=== PATIENT | female | born 1945 | race Two or more races ===

== ENCOUNTER 2020-02-25 16:26 | Inpatient (IN) | payer MEDICAID, OTHER ==
[~2020-02-25] VITALS: Ht 137.2 cm; Wt 81.0 kg
[2020-02-25 17:33] LABS: Red Cell Distribution Width 14.5 % (11.8-14.3); White Blood Cell 4.1 10^3/uL (4.4-10.8)
[2020-02-25 17:34] LABS: Hematocrit 34.5 % (36.0-46.0); Hemoglobin 12.2 g/dL (12.2-16.2); Mean Corpuscular Hemoglobin 35.9 pg (28.0-32.0); Mean Corpuscular Hgb Conc. 35.2 g/dL (32.0-36.0); Red Blood Cells 3.39 10^6/uL (4.0-5.20)
[2020-02-25 17:42] LABS: Alanine Aminotransferase 20 U/L (13-56); Albumin 3.2 g/dL (3.4-5.0); Anion Gap 4 (5-15); Aspartate Aminotransferase 18 U/L (15-37); BUN/Creatinine Ratio 16.8; Blood Urea Nitrogen 21 mg/dL (7-18); Calcium 8.4 mg/dL (8.5-10.1); Carbon Dioxide 29 mmol/L (21-32); Chloride 107 mmol/L (98-107); GFR African American 54 mL/min; GFR Non-African American 45 mL/min; Glucose 111 mg/dL (74-106); Platelet Count (auto) 4 10^3/uL (140-450); Potassium 3.8 mmol/L (3.5-5.1); Sodium 140 mmol/L (136-145)
[2020-02-25 17:44] LABS: Band Neutrophils % (manual) 0; Basophils % (manual) 0 (0.0-2.0); Blast Cells 0; Metamyelocytes % 0; Myelocytes % 0; Promyelocytes % 0; Reactive Lymphocytes 0
[2020-02-25 17:47] LABS: Alkaline Phosphatase 93 U/L (45-117); Bilirubin, Total 0.7 mg/dL (0.2-1.0); Total Protein 7.5 g/dL (6.4-8.2)
[2020-02-25 18:10] LABS: Lymphocytes % (manual) 65 (10.0-50.0); Monocytes % (manual) 7 (0-12)
[2020-02-25 18:11] LABS: Eosinophils % (manual) 1 (0-7)
[2020-02-25 19:00] LABS: Urine Bacteria FEW /hpf (None Seen); Urine Blood 1+ /uL (Negative); Urine Specific Gravity 1.007 (1.001-1.035); Urine WBC 10 /hpf (0 - 5)
[2020-02-25 19:25] LABS: INR 0.98 (0.9-1.15); Partial Thromboplastin Time 25.1 sec (23.64-32.05)
[2020-02-25 20:30] VITALS: BP 148/76
[2020-02-25 20:49] VITALS: BP 167/78
[2020-02-25] MEDS ORDERED: TEMAZEPAM 15 MG CAP PO PRN (21:45)
[2020-02-25] MEDS ORDERED: cloNIDine HCL 0.1 MG TAB PO PRN (21:45)
[2020-02-25] MEDS ORDERED: ONDANSETRON HCL 4 MG/2 ML VIAL IV PRN (21:45)
[2020-02-25] MEDS ORDERED: MECLIZINE HCL 25 MG TAB PO ONE (21:45)
[2020-02-25] MEDS ORDERED: MECLIZINE HCL 25 MG TAB PO PRN (21:45)
[2020-02-25] MEDS ORDERED: ACETAMINOPHEN 325 MG TAB PO PRN (21:45)
[2020-02-25 22:28] VITALS: BP 170/68
[2020-02-25 23:00] VITALS: BP 133/96
--- NOTE | 2020-02-25 23:00 | NUR ---
pt arrival pt A&Ox4. respirations are even and non labored on 2L nc. no s/s of pain or discomfort. pt is currently dangling at the bedside.
--- NOTE | 2020-02-26 02:50 | NUR ---
pt is resting in right lateral position. Respirations are even and nonlabored on 2Lnc. no s/s of pain or discomfort at this time. call light within reach.
[2020-02-26 05:00] VITALS: BP_SYST 114; BP_SYST 139; BP_DIAS 66; BP_DIAS 71
--- NOTE | 2020-02-26 06:45 | NUR ---
pt is resting in left lateral position, sleeping. respirations are even and nonlabored on 2Lnc. no s/s of pain or discomfort at this time. bed is in low locked position, call light within reach.
[2020-02-26 06:47] LABS: Basophils # (auto) 0 10 ^3/uL (0-0.2); Eosinophils # (auto) 0 10 ^3/uL (0-0.8); Hematocrit 31.8 % (36.0-46.0); Lymphocytes # (auto) 0.9 10 ^3/uL (0.4-5.4); Mean Corpuscular Hgb Conc. 34.4 g/dL (32.0-36.0); Monocytes # (auto) 0.2 10 ^3/uL (0-1.3); Nucleated Red Blood Cells % 0.4 %
[2020-02-26 06:49] LABS: Basophils % (auto) 0.4 % (0.0-2.0); Eosinophils % (auto) 0.5 % (0.0-7.0); Mean Corpuscular Hemoglobin 34.9 pg (28.0-32.0); Mean Corpuscular Volume 101.5 fL (80.0-100.0); Neutrophils # (auto) 1.8 10 ^3/uL (1.6-8.6); Neutrophils % (auto) 62.1 % (37.0-80.0); Red Blood Cells 3.14 10^6/uL (4.0-5.20); Red Cell Distribution Width 14.4 % (11.8-14.3); White Blood Cell 2.9 10^3/uL (4.4-10.8)
[2020-02-26 06:53] LABS: Platelet Count (auto) 8 10^3/uL (140-450)
--- NOTE | 2020-02-26 06:55 | NUR ---
critical low lab platelets of 4. hospitalist paged
[2020-02-26 07:02] LABS: BUN/Creatinine Ratio 21.6
--- NOTE | 2020-02-26 07:36 | NUR ---
Opening Note Assumed pt care from [facility] nurse. Pt is a/ox4 with no s/s of distress or SOB. Pt is currently laying upright in bed with no complaints at this time. Discussed POC with pt. Safety measures maintained with call light within reach, bed in lowest position and side rails up. Will continue to monitor for changes.
[2020-02-26] MEDS: PANTOPRAZOLE 40 MG TAB PO SCH (08:43)
[2020-02-26] MEDS: amLODIPine BESYLATE 5 MG TAB PO SCH (08:43)
--- NOTE | 2020-02-26 08:45 | NUR ---
Pt Taken to MRI Pt taken to MRI via wheelchair. Pt is a/ox4 with no s/s of distress upon transfer. Addendum: 02/26/20 at 0925 by NEIDA SHAH RN RN Pt back on unit. A/ox4 with no s/s of distress.
[2020-02-26 09:00] VITALS: BP 139/69
--- NOTE | 2020-02-26 10:27 | NUR ---
Blood Bank Called Blood bank called stating that pt's platelets were ready for pickling grader. Per Dr Meade's most recent note, we are mellissa hold off infusions right now. Notified blood bank of withholding blood product. Deandra in lab recommended that we cancel the existing order.
--- NOTE | 2020-02-26 11:02 | NUR ---
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 Number provided does not work and will not connect. Will attempt again and see if I can obtain another number/contact.
[2020-02-26 13:00] VITALS: BP 115/71
--- NOTE | 2020-02-26 14:10 | NUR ---
Spoke with Pt's Family Spoke with pt's daughter in law, Kelly at [phone]. Spoke to her regarding care and POC. 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 Per pt's daughter in law, pt recently moved up to [facility] and is scheduled to see a new High Wire Artist/Oncologist later this month, March 24. Pt's daughter in law did provide me with contact for pt's previous Oncologist/High Wire Artist, Dr Vasiliy Inman, , located in [place]. This is the only contact that the pt's daughter in law had. Per daughter in law, she would attempt to get more information and notify us. Will attempt to get additional contact information from given contact.
[2020-02-26] MEDS: methylPREDNISolone SOD SUCC 125 MG in SODIUM CHL 0.9% 100 ML IV SCH ×2 (14:14→21:47)
--- NOTE | 2020-02-26 16:10 | NUR ---
MR Ferrara Spoke with staff member at [facility] after looking up the contact provided, . Per staff member, pt did receive care there in [address] Mccauley. Fax number [phone] provided. Will [id number] to get MR from this facility.
--- NOTE | 2020-02-26 16:39 | NUR ---
Faxed MR Request Faxed MR request to [facility], . MR request fax place din chart. Will endorse to oncoming shift if report does not come back.
--- NOTE | 2020-02-26 16:46 | NUR ---
Elevated POC Glucose Pt states that she "feels her sugars are high". Pt has hx of DM. But there are no orders for glucose checks or DM management. Check pt's glucose, currently 353. Paged Dr Wilson to notify. Addendum: 02/26/20 at 1651 by NEIDA SHAH RN RN Dr Pedraza called back. Orders read back and verified.
[2020-02-26 17:00] VITALS: BP 144/87
[2020-02-26] MEDS ORDERED: DEXTROSE (50%) 50ML SYRG IV PRN (17:00)
[2020-02-26] MEDS: InsuLIN REG 1unit/0.01ml Soln (100units/ml) SC SCH (17:07)
[2020-02-26] MEDS: ACCU-CHEK COMFORT CURVE STRIP VI SCH (17:08)
[2020-02-26 20:00] VITALS: BP 144/71
[2020-02-26 22:00] VITALS: BP 124/62
[2020-02-27] MEDS: ACCU-CHEK COMFORT CURVE STRIP VI SCH ×4 (00:04→18:38)
[2020-02-27] MEDS: InsuLIN REG 1unit/0.01ml Soln (100units/ml) SC SCH ×4 (00:09→18:43)
--- NOTE | 2020-02-27 03:48 | NUR ---
PATIENT WAS AWAKE AND ALERT UNTIL MIDNIGHT. STATED SHE FEELS ANXIOUS ABOUT HER BLOOD SUGAR. WAS REASSURED. WAS INFORMED HER BLOOD SUGAR RISE WAS RELATED TO THE METHYLPREDNISOLONE SHE WAS GETTING IV. WAS HAPPY WITH THE INFORMATION AND SOON SLEPT.
[2020-02-27 05:00] VITALS: BP 116/64
[2020-02-27] MEDS: methylPREDNISolone SOD SUCC 125 MG in SODIUM CHL 0.9% 100 ML IV SCH ×2 (05:23→14:51)
[2020-02-27 09:00] VITALS: BP 141/75
[2020-02-27] MEDS: amLODIPine BESYLATE 5 MG TAB PO SCH (10:54)
[2020-02-27] MEDS: PANTOPRAZOLE 40 MG TAB PO SCH (10:54)
[2020-02-27 11:48] LABS: Basophils # (auto) 0.1 10 ^3/uL (0-0.2); Eosinophils # (auto) 0 10 ^3/uL (0-0.8); Hemoglobin 11.8 g/dL (12.2-16.2); White Blood Cell 7.3 10^3/uL (4.4-10.8)
[2020-02-27 11:50] LABS: Basophils % (auto) 1.2 % (0.0-2.0); Hematocrit 34.4 % (36.0-46.0); Lymphocytes # (auto) 1.3 10 ^3/uL (0.4-5.4); Lymphocytes % (auto) 17.3 % (10.0-50.0); Mean Corpuscular Hgb Conc. 34.2 g/dL (32.0-36.0); Mean Corpuscular Volume 102.1 fL (80.0-100.0); Monocytes # (auto) 0.1 10 ^3/uL (0-1.3); Monocytes % (auto) 1.7 % (0.0-12.0); Neutrophils # (auto) 5.8 10 ^3/uL (1.6-8.6); Neutrophils % (auto) 79.8 % (37.0-80.0); Red Blood Cells 3.36 10^6/uL (4.0-5.20); Red Cell Distribution Width 14.5 % (11.8-14.3)
[2020-02-27 11:55] LABS: Platelet Count (auto) 6 10^3/uL (140-450)
[2020-02-27 12:09] LABS: Albumin 3.3 g/dL (3.4-5.0); Calcium 8.7 mg/dL (8.5-10.1); Potassium 4.1 mmol/L (3.5-5.1)
[2020-02-27 12:14] LABS: Total Protein 7.7 g/dL (6.4-8.2)
[2020-02-27 12:54] VITALS: BP 124/61
--- NOTE | 2020-02-27 13:55 | NUR ---
Regarding medications Spoke to patient's daughter Radha and med rec verified for Cyclosporine and Promacta. Will update med rec. MD Meade notified and orders for continuing meds received and spoke to pharmacist but she states we dont carry Promacta only cyclosporine. Will medicate as ordered upon receiving med.
[2020-02-27] MEDS ORDERED: CYCL25CA7 PO (15:19)
[2020-02-27] MEDS ORDERED: ELTR12.5 PO (15:19)
[2020-02-27 17:00] VITALS: BP 132/69
--- NOTE | 2020-02-27 19:00 | NUR ---
Patient care endorsed endorsed care of patient to rachael Bhatia. Patient sitting up in bed in no acute distress or sob noted. Call light within reach.
[2020-02-27 21:36] VITALS: BP 145/75
[2020-02-27] MEDS: DexAMETHasone INJECTION 10 MG in D5W 5% 50 ML IV SCH (22:46)
[2020-02-27] MEDS: INSULIN LANTUS (GLARGINE) 1 /0.01ml (100units/ml) SC SCH (22:48)
[2020-02-28] MEDS: InsuLIN REG 1unit/0.01ml Soln (100units/ml) SC SCH ×4 (00:51→18:23)
[2020-02-28 05:04] VITALS: BP 122/74
[2020-02-28] MEDS: ACCU-CHEK COMFORT CURVE STRIP VI SCH ×4 (05:36→18:14)
[2020-02-28] MEDS: DexAMETHasone INJECTION 10 MG in D5W 5% 50 ML IV SCH ×4 (05:45→21:53)
[2020-02-28 09:00] VITALS: BP 132/70
[2020-02-28] MEDS: amLODIPine BESYLATE 5 MG TAB PO SCH (09:58)
[2020-02-28] MEDS: PROMACTA 50 MG PO SCH (09:58)
[2020-02-28] MEDS: PANTOPRAZOLE 40 MG TAB PO SCH (09:58)
[2020-02-28] MEDS ORDERED: PROMACTA 25 MG PO SCH (10:00)
[2020-02-28] MEDS: INSULIN LANTUS (GLARGINE) 1 /0.01ml (100units/ml) SC SCH ×2 (10:21→22:02)
[2020-02-28 13:00] VITALS: BP 128/68
--- NOTE | 2020-02-28 19:28 | NUR ---
RECEIVED PATIENT FROM DAY SHIFT RN. PATIENT RESTING IN BED. NO S/S OF DISTRESS NOTED. DENIED PAIN FOR NOW. POC INSTRUCTED AND ENCOURAGED PATIENT TO CALL FOR MEDICAL CLAIMS PROCESSOR IF NEEDED. BED IN LOWEST POSITION WITH SIDE RAILS UP X 2. CALL SIEGEL WITHIN REACH. ALARM ON. CONTINUE TO MONITOR FOR CHANGES Q1H AND PRN.
[2020-02-28 21:00] VITALS: BP 139/74
[2020-02-28] MEDS: ATORVASTATIN 20 MG TAB PO SCH (21:53)
--- NOTE | 2020-02-28 22:05 | NUR ---
ACCU-CHECK. BS 339. LANTUS GIVEN ORDERED. CONTINUE TO MONITOR.
[2020-02-29] MEDS: InsuLIN REG 1unit/0.01ml Soln (100units/ml) SC SCH ×5 (00:05→23:51)
[2020-02-29] MEDS: ACCU-CHEK COMFORT CURVE STRIP VI SCH ×5 (00:05→23:50)
--- NOTE | 2020-02-29 00:14 | NUR ---
ACCU-CHECK. BS 306. INSULIN GIVEN ORDERED. CONTINUE TO MONITOR.
--- NOTE | 2020-02-29 03:07 | NUR ---
PATIENT SLEEPING NO S/S OF DISTRESS NOTED. CONTINUE TO MONITOR.
[2020-02-29 05:04] VITALS: BP 117/69
[2020-02-29] MEDS: DexAMETHasone INJECTION 10 MG in D5W 5% 50 ML IV SCH ×4 (05:46→22:30)
--- NOTE | 2020-02-29 06:07 | NUR ---
ACCU-CHECK. BS 278. INSULIN GIVEN ORDERED. CONTINUE TO MONITOR.
[2020-02-29 07:13] LABS: Basophils # (auto) 0.1 10 ^3/uL (0-0.2); Eosinophils # (auto) 0 10 ^3/uL (0-0.8); Hemoglobin 11.6 g/dL (12.2-16.2); Lymphocytes # (auto) 1.3 10 ^3/uL (0.4-5.4); Mean Corpuscular Hemoglobin 34.4 pg (28.0-32.0); Neutrophils # (auto) 4.8 10 ^3/uL (1.6-8.6); Nucleated Red Blood Cells % 0.2 %; Red Blood Cells 3.37 10^6/uL (4.0-5.20); White Blood Cell 6.3 10^3/uL (4.4-10.8)
[2020-02-29 07:16] LABS: Basophils % (auto) 1.4 % (0.0-2.0); Hematocrit 34.2 % (36.0-46.0); Lymphocytes % (auto) 20.1 % (10.0-50.0); Mean Corpuscular Volume 101.4 fL (80.0-100.0); Monocytes # (auto) 0.1 10 ^3/uL (0-1.3); Monocytes % (auto) 2.2 % (0.0-12.0); Neutrophils % (auto) 76.3 % (37.0-80.0); Red Cell Distribution Width 14.9 % (11.8-14.3)
[2020-02-29 07:36] LABS: INR 1.02 (0.9-1.15); Partial Thromboplastin Time 23.1 sec (23.64-32.05)
[2020-02-29 07:41] LABS: Platelet Count (auto) 4 10^3/uL (140-450)
[2020-02-29 08:02] LABS: Potassium 3.7 mmol/L (3.5-5.1)
[2020-02-29 08:11] LABS: Albumin 3.2 g/dL (3.4-5.0); BUN/Creatinine Ratio 25.2; Bilirubin, Total 0.9 mg/dL (0.2-1.0); Calcium 8.9 mg/dL (8.5-10.1); Magnesium 2.2 mg/dL (1.6-2.6)
[2020-02-29 09:00] VITALS: BP 127/74
--- NOTE | 2020-02-29 09:20 | NUR ---
Hospitalist paged second page to doctor Myles to notify of critical labs. Awaiting call back at this time. Patient denies any bleeding at this time. Fall precs in place.
[2020-02-29 09:52] LABS: % Iron Saturation 51.6 % (15-50)
[2020-02-29] MEDS: PROMACTA 50 MG PO SCH (10:00)
[2020-02-29] MEDS: amLODIPine BESYLATE 5 MG TAB PO SCH (10:09)
[2020-02-29] MEDS: PANTOPRAZOLE 40 MG TAB PO SCH (10:09)
[2020-02-29] MEDS: INSULIN LANTUS (GLARGINE) 1 /0.01ml (100units/ml) SC SCH ×2 (10:15→22:29)
--- NOTE | 2020-02-29 11:30 | NUR ---
WARE CARRIER AT BEDSIDE DR Meade at bedside, aware of patient's status including critical labs. Inpatient pharmacy is unable to obtain Promacta and patient's family is unable to obtain med or prescription from [facility] in [place], MD Meade aware and will order another medication. New orders received for IVIG today. Will medicate once medication is available per pharmacy. Patient verbalized understanding. Will cont care
[2020-02-29 13:00] VITALS: BP 118/69
[2020-02-29] MEDS: diphenhdrAMINE 50mg/ml (500mg/10ml VIAL) IV SCH (13:47)
[2020-02-29] MEDS: ACETAMINOPHEN 325 MG TAB PO SCH (13:59)
[2020-02-29] MEDS: IV IMMUNE GLOBULIN(IVIG) 10% 20G/200ML IV SCH (14:27)
[2020-02-29 17:00] VITALS: BP 100/63
--- NOTE | 2020-02-29 17:30 | NUR ---
IVIG#2 BOTTLE RUNNING AT THIS TIME. PATIENT TOLERATING WELL NO S/S OF ALLERGIC REACTION. PATIENT INSTRUCTED TO CALL PRIMARY RN AND REPORT ANY ISSUES. CONT TO MONITOR
--- NOTE | 2020-02-29 19:15 | NUR ---
PATIENT CARE ENDORSED ENDORSED CARE TO SARITA GREENE. PATIENT LAYING COMFORTABLY IN BED NO ACUTE DISTRESS OR SOB NOTED. PATIENT DENIES ANY PAIN. FALL PRECS IN PLACE PER PROTOCOL. CALL LIGHT WITHIN REACH. IVIG CURRENTLY INFUSING ORDERED. PATIENT TOLERATING WELL. PATIENT DENIES ANY BLEEDING.
--- NOTE | 2020-02-29 19:40 | NUR ---
Opening Shift Note Report received from day shift RN. Assumed care of patient, awake and A&O x4. No S/S of distress/SOB noted and denies pain at this time. BED LOCKED AND LEFT IN THE LOWEST POSITION WITH SIDE RAILS UP X 2. Instructed on POC and to call for assist PRN, will continue to monitor for changes Q1hr and PRN.
[2020-02-29 22:00] VITALS: BP 141/74
[2020-02-29] MEDS: ATORVASTATIN 20 MG TAB PO SCH (22:17)
[2020-03-01 05:00] VITALS: BP 145/70
[2020-03-01 05:00] LABS: Red Blood Cells 3.28 10^6/uL (4.0-5.20)
[2020-03-01 05:03] LABS: Hemoglobin 11.4 g/dL (12.2-16.2); Mean Corpuscular Hemoglobin 34.8 pg (28.0-32.0); Mean Corpuscular Hgb Conc. 34.7 g/dL (32.0-36.0); Mean Corpuscular Volume 100.4 fL (80.0-100.0); Red Cell Distribution Width 14.4 % (11.8-14.3); White Blood Cell 4.6 10^3/uL (4.4-10.8)
[2020-03-01 05:26] LABS: Platelet Count (auto) 6 10^3/uL (140-450)
[2020-03-01 05:27] LABS: Band Neutrophils % (manual) 0; Basophils % (manual) 0 (0.0-2.0); Blast Cells 0; Eosinophils % (manual) 0 (0-7); Metamyelocytes % 0; Myelocytes % 0; Promyelocytes % 0; Reactive Lymphocytes 0
[2020-03-01 06:02] LABS: Lymphocytes % (manual) 26 (10.0-50.0); Monocytes % (manual) 4 (0-12)
[2020-03-01] MEDS: ACCU-CHEK COMFORT CURVE STRIP VI SCH ×3 (06:13→17:50)
[2020-03-01] MEDS: DexAMETHasone INJECTION 10 MG in D5W 5% 50 ML IV SCH ×4 (06:13→22:21)
[2020-03-01] MEDS: InsuLIN REG 1unit/0.01ml Soln (100units/ml) SC SCH ×3 (06:27→18:12)
--- NOTE | 2020-03-01 07:30 | NUR ---
OPENING SHIFT NOTE Assumed care of patient from shift supervisor rn RN. Patient is alert and oriented x4, no signs of distress noted. Patient was updated on the plan of care and verbalized understanding. Bed is locked, in the lowest position side rails up x 2 and call light is in reach. Patient was encouraged to call for assistance as needed.
--- NOTE | 2020-03-01 07:45 | NUR ---
ENDORSED CARE TO DAY SHIFT RN, PATIENT RESTING IN BED, NO S/S OF DISTRESS OR SOB.
[2020-03-01 09:00] VITALS: BP 135/72
[2020-03-01] MEDS ORDERED: IV IMMUNE GLOBULIN(IVIG) 10% 20G/200ML IV SCH (10:00)
[2020-03-01] MEDS: PROMACTA 50 MG PO SCH (10:00)
[2020-03-01] MEDS: INSULIN LANTUS (GLARGINE) 1 /0.01ml (100units/ml) SC SCH ×2 (10:19→22:21)
[2020-03-01] MEDS: PANTOPRAZOLE 40 MG TAB PO SCH (10:20)
[2020-03-01] MEDS: amLODIPine BESYLATE 5 MG TAB PO SCH (10:20)
--- NOTE | 2020-03-01 12:48 | NUR ---
Nutrition Assessment Notes Please refer to link for full assessment notes. Est energy needs: [id number] kcals (23-25 kcal/kgBW) Est protein needs: 39-42 gms/day (1.0-1.1 gm/kgBW) Will continue to monitor and reassess prn. Addendum: 03/01/20 at [address] Amended: Links added.
[2020-03-01 13:00] VITALS: BP 138/75
[2020-03-01] MEDS: diphenhdrAMINE 50mg/ml (500mg/10ml VIAL) IV SCH (13:44)
[2020-03-01] MEDS: ACETAMINOPHEN 325 MG TAB PO SCH (13:45)
[2020-03-01] MEDS: IV IMMUNE GLOBULIN(IVIG) 10% 20G/200ML IV SCH (14:20)
[2020-03-01 16:48] VITALS: BP 142/74
--- NOTE | 2020-03-01 19:15 | NUR ---
CLOSING SHIFT NOTES Care endorsed to material handler 2nd shift RN
--- NOTE | 2020-03-01 19:45 | NUR ---
Opening Shift Note Assumed care of patient, awake and alert. No S/S of distress/SOB or pain. Tamazight speaker. Instructed on POC and to call for assist PRN, will continue to monitor for changes Q1hr and PRN.
[2020-03-01 20:00] VITALS: BP 137/65
--- NOTE | 2020-03-01 20:10 | NUR ---
RH IV insertion IV access obtained, via clean sterile technique by inserting 20 gauge catheter at after 1 attempt(s). IV secured properly. No trauma to site. Patient tolerated well.
--- NOTE | 2020-03-01 20:10 | NUR ---
RFA IV removal IV DC'd with clean sterile technique, catheter fully intact. Pressure dressing applied to site. Patient tolerated well.
[2020-03-01 22:00] VITALS: BP 137/65
[2020-03-01] MEDS: ATORVASTATIN 20 MG TAB PO SCH (22:21)
[2020-03-02] MEDS: ACCU-CHEK COMFORT CURVE STRIP VI SCH ×4 (00:30→17:52)
[2020-03-02] MEDS: InsuLIN REG 1unit/0.01ml Soln (100units/ml) SC SCH ×4 (00:30→18:38)
[2020-03-02 05:00] VITALS: BP 144/71
[2020-03-02] MEDS: DexAMETHasone INJECTION 10 MG in D5W 5% 50 ML IV SCH ×3 (05:45→17:52)
--- NOTE | 2020-03-02 07:33 | NUR ---
Opening Shift Note Assumed care of patient. Patient is awake, alert, and oriented X 4, resting in bed. No S/S of respiratory distress, respirations are regular and non-labored. Patient reports no pain, N/V. Bed in lower position, brakes are locked, call light within reach. IV is patent. Patient is instructed on POC and to call for assistance as needed. Will continue to monitor for changes Q1hr and PRN.
[2020-03-02 07:46] LABS: Hemoglobin 11.2 g/dL (12.2-16.2); Red Cell Distribution Width 14.4 % (11.8-14.3); White Blood Cell 4.2 10^3/uL (4.4-10.8)
[2020-03-02 07:52] LABS: Hematocrit 32.7 % (36.0-46.0); Mean Corpuscular Hemoglobin 34.7 pg (28.0-32.0); Mean Corpuscular Hgb Conc. 34.4 g/dL (32.0-36.0); Mean Corpuscular Volume 100.9 fL (80.0-100.0); Red Blood Cells 3.24 10^6/uL (4.0-5.20)
[2020-03-02 08:00] VITALS: BP 139/78
[2020-03-02 08:03] LABS: Platelet Count (auto) 6 10^3/uL (140-450)
[2020-03-02 08:06] LABS: Band Neutrophils % (manual) 0; Basophils % (manual) 0 (0.0-2.0); Blast Cells 0; Calcium 8.1 mg/dL (8.5-10.1); Eosinophils % (manual) 0 (0-7); Metamyelocytes % 0; Myelocytes % 0; Potassium 3.5 mmol/L (3.5-5.1); Promyelocytes % 0; Reactive Lymphocytes 0
[2020-03-02 08:08] LABS: BUN/Creatinine Ratio 33.3
[2020-03-02 08:30] LABS: Lymphocytes % (manual) 27 (10.0-50.0); Monocytes % (manual) 5 (0-12)
[2020-03-02 09:00] VITALS: BP 139/78
--- NOTE | 2020-03-02 09:32 | NUR ---
Follow up regarding medical records This rn spoke to Vilma at [facility] [place] [facility] regarding medical records, she states she will gather records and fax them to [employer] at [phone]. Awaiting records at this time.
[2020-03-02] MEDS: PROMACTA 50 MG PO SCH (10:00)
[2020-03-02 10:19] LABS: Folate (Folic Acid) 16.33 ng/mL (5.38-24)
[2020-03-02] MEDS: PANTOPRAZOLE 40 MG TAB PO SCH (10:23)
[2020-03-02] MEDS: amLODIPine BESYLATE 5 MG TAB PO SCH (10:24)
[2020-03-02] MEDS: INSULIN LANTUS (GLARGINE) 1 /0.01ml (100units/ml) SC SCH ×2 (10:27→22:29)
[2020-03-02 13:12] VITALS: BP 143/72
--- NOTE | 2020-03-02 13:33 | NUR ---
Regarding IVIG Per Pharmacist Eunice, hospital does not have IVIG currently. She states she will order from another hospital and notify primary nursing once med is available for administration. Instructed to hold benadryl and tylenol at this time until medication is available. Cont care
[2020-03-02] MEDS: diphenhdrAMINE 50mg/ml (500mg/10ml VIAL) IV SCH (14:49)
[2020-03-02] MEDS: ACETAMINOPHEN 325 MG TAB PO SCH (14:50)
[2020-03-02] MEDS: IV IMMUNE GLOBULIN(IVIG) 10% 20G/200ML IV SCH (15:53)
--- NOTE | 2020-03-02 15:53 | NUR ---
IVIG obtained per pharmacy and started as ordered Bottle number 1 started at this time out of 6 bottles. 10mg per bottle for a total of 6 bottles.
[2020-03-02 16:51] VITALS: BP 132/63
--- NOTE | 2020-03-02 17:53 | NUR ---
IVIG Second bottle IVIG infusing at this time. Patient tolerating well. Cont care
--- NOTE | 2020-03-02 19:10 | NUR ---
Patient care endorsed endorsed care to Rere cano. Patient resting comfortably in bed no acute distress or sob currently infusing bottle #2 out of 6 bottles. Rere informed IVIG is in the fridge. Call light within reach.
--- NOTE | 2020-03-02 19:45 | NUR ---
Opening Shift Note Assumed care of patient, awake and alert. No S/S of distress/SOB or pain. Instructed on POC and to call for assist PRN, will continue to monitor for changes Q1hr and PRN.
--- NOTE | 2020-03-02 19:50 | NUR ---
IVIG Third bottle IVIG infusing at this time. Patient tolerating well. Cont care
--- NOTE | 2020-03-02 21:10 | NUR ---
IVIG Fourth bottle IVIG infusing at this time. Patient tolerating well. Cont care
[2020-03-02] MEDS: ATORVASTATIN 20 MG TAB PO SCH (22:28)
--- NOTE | 2020-03-02 22:30 | NUR ---
IVIG Fifth bottle IVIG infusing at this time. Patient tolerating well. Cont care
[2020-03-02 23:09] VITALS: BP 118/76
--- NOTE | 2020-03-02 23:40 | NUR ---
IVIG 6th bottle IVIG infusing at this time. Patient tolerating well. Cont care
[2020-03-03] MEDS: InsuLIN REG 1unit/0.01ml Soln (100units/ml) SC SCH ×5 (00:12→23:51)
[2020-03-03] MEDS: ACCU-CHEK COMFORT CURVE STRIP VI SCH ×5 (00:12→23:52)
[2020-03-03 05:41] VITALS: BP 129/70
--- NOTE | 2020-03-03 07:24 | NUR ---
CLOSING SHIFT NOTES Care endorsed to back padder RN
--- NOTE | 2020-03-03 07:35 | NUR ---
Opening Shift Note Assumed care of patient, pt is laying in bed alert and oriented x 4. No S/S of distress or SOB, patient denies any pain at the moment. Instructed on POC and to call for assistance as needed, call light within reach. Safety measures in place, bed set to lowest locked position x2 rails up. Will continue to monitor for changes Q1hr and PRN.
[2020-03-03 09:12] VITALS: BP 128/59
[2020-03-03] MEDS: PANTOPRAZOLE 40 MG TAB PO SCH (09:32)
[2020-03-03] MEDS: amLODIPine BESYLATE 5 MG TAB PO SCH (09:33)
[2020-03-03] MEDS: INSULIN LANTUS (GLARGINE) 1 /0.01ml (100units/ml) SC SCH ×2 (09:34→21:50)
[2020-03-03] MEDS: PROMACTA 50 MG PO SCH (10:00)
[2020-03-03 13:00] VITALS: BP 130/68
--- NOTE | 2020-03-03 14:11 | NUR ---
assessment Patient is a 74 year old female who is alert and oriented. Prior to admission patient lived home with family and functioned independently. Patient informed me she is able to care for her own ADLs. Per patient she will return home to her prior living arrangements post discharge and family will transport her home. PAtient has a fww for home use. Patient has no post discharge needs identified. I informed patient she has a right to speak to a social contact worker regarding all care. I informed patient she has a right to participate in any and all discharge planning. Patient does not have a POA and advanced directive. I have offered patient information on POA and advanced directives. I informed the patient the advantages and benefits of having an Advanced Directive. Patient verbalized understanding and agreed to discharge plan. Addendum: 03/03/20 at 1413 by Michelle JAIN Amended: Links added.
--- NOTE | 2020-03-03 14:15 | NUR ---
Dr. Meade notified of the CBC result, no further order.
[2020-03-03 14:21] LABS: Hematocrit 33.6 % (36.0-46.0); Hemoglobin 11.4 g/dL (12.2-16.2); Mean Corpuscular Hemoglobin 34.5 pg (28.0-32.0); Mean Corpuscular Volume 101.4 fL (80.0-100.0); Red Blood Cells 3.31 10^6/uL (4.0-5.20); Red Cell Distribution Width 14.6 % (11.8-14.3); White Blood Cell 5.3 10^3/uL (4.4-10.8)
[2020-03-03 14:41] LABS: Band Neutrophils % (manual) 0; Basophils % (manual) 0 (0.0-2.0); Blast Cells 0; Eosinophils % (manual) 0 (0-7); Metamyelocytes % 0; Myelocytes % 0; Promyelocytes % 0; Reactive Lymphocytes 0
[2020-03-03 14:47] LABS: Lymphocytes % (manual) 32 (10.0-50.0); Monocytes % (manual) 4 (0-12)
--- NOTE | 2020-03-03 16:32 | NUR ---
pt resting on bed at this time, will continue to monitor.
[2020-03-03 17:00] VITALS: BP 135/71
--- NOTE | 2020-03-03 19:30 | NUR ---
Opening Shift Note Assumed care of patient, awake and alert x4. No S/S of distress/SOB or pain. Call light is within reach, fall precautions are in place. Instructed on POC and to call for assist PRN. All questions and concerns answered, will continue to monitor for changes Q1hr and PRN.
[2020-03-03] MEDS: ATORVASTATIN 20 MG TAB PO SCH (21:50)
[2020-03-03 21:53] VITALS: BP 112/63
[2020-03-04 05:07] VITALS: BP 103/55
[2020-03-04] MEDS: ACCU-CHEK COMFORT CURVE STRIP VI SCH (06:41)
[2020-03-04] MEDS: InsuLIN REG 1unit/0.01ml Soln (100units/ml) SC SCH ×4 (06:42→23:36)
[2020-03-04 06:53] LABS: Hemoglobin 11.6 g/dL (12.2-16.2)
[2020-03-04 06:57] LABS: Hematocrit 33.2 % (36.0-46.0); Mean Corpuscular Hemoglobin 35.3 pg (28.0-32.0); Mean Corpuscular Volume 100.7 fL (80.0-100.0); Red Cell Distribution Width 14.2 % (11.8-14.3); White Blood Cell 4.7 10^3/uL (4.4-10.8)
[2020-03-04 07:38] LABS: Platelet Count (auto) 5 10^3/uL (140-450)
[2020-03-04 07:39] LABS: Band Neutrophils % (manual) 0; Basophils % (manual) 0 (0.0-2.0); Blast Cells 0; Eosinophils % (manual) 0 (0-7); Metamyelocytes % 0; Myelocytes % 0; Promyelocytes % 0; Reactive Lymphocytes 0
--- NOTE | 2020-03-04 07:55 | NUR ---
Patient awake, oriented x4, no acute distress noted.
[2020-03-04 08:18] LABS: Lymphocytes % (manual) 63 (10.0-50.0)
[2020-03-04 08:19] LABS: Monocytes % (manual) 16 (0-12)
--- NOTE | 2020-03-04 08:31 | NUR ---
Platelet = 5*L. Dominique Wilson.
--- NOTE | 2020-03-04 08:35 | NUR ---
Dr. Wilson called back. made aware Platelet Count = 5*L. ordered to inform Dr. Meade for Hematology follow up.
--- NOTE | 2020-03-04 08:36 | NUR ---
Dr. Meade came over. made aware of the patient's Platelet = 5*L.
--- NOTE | 2020-03-04 08:50 | NUR ---
Dr. Meade at bedside for Hematology follow up. ordered Rituxan IV, the Oncology Nurse to come over to administer the medication. FRANKLIN Powell translated for the patient in Nepali. Patient asked when is she going home. Dr. Meade explained to patient that her platelet has to improve.
[2020-03-04 09:00] VITALS: BP 100/58
[2020-03-04] MEDS: PROMACTA 50 MG PO SCH (09:13)
[2020-03-04] MEDS ORDERED: ACETAMINOPHEN 325 MG TAB PO ONE (09:15)
[2020-03-04] MEDS ORDERED: DexAMETHasone SOD PHOS 10MG/1ML VIAL INJ IV ONE (09:15)
--- NOTE | 2020-03-04 09:30 | NUR ---
Transferred patient via wheelchair from Room 221A to Room 204. Patient awake, oriented x4. No acute distress noted.
--- NOTE | 2020-03-04 09:35 | NUR ---
Dr. Meade to discontinue the order for IV Rituxan, he will keep the order for Promacta. made aware patient has been transferred to Room 204.
--- NOTE | 2020-03-04 09:35 | NUR ---
Dr. Meade to send the Promacta to Pharmacy.
--- NOTE | 2020-03-04 09:40 | NUR ---
Patient asked if her family can bring her almond shake from home. Informed Dr. Meade. said patient can have it. Explained to patient her family can bring her almond shake as long as it does not contain medications. FRANKLIN Powell translated in Gambian.
[2020-03-04] MEDS: PANTOPRAZOLE 40 MG TAB PO SCH (09:54)
[2020-03-04] MEDS: amLODIPine BESYLATE 5 MG TAB PO SCH (09:55)
[2020-03-04] MEDS: INSULIN LANTUS (GLARGINE) 1 /0.01ml (100units/ml) SC SCH ×2 (10:00→21:56)
[2020-03-04] MEDS ORDERED: [UNRECOGNIZED DRUG - OTHER] PO ONE (11:00)
--- NOTE | 2020-03-04 11:58 | NUR ---
Dr. Wilson came over. made aware Dr. Meade has seen the patient for follow up Hematology Consult.
[2020-03-04 13:00] VITALS: BP 124/73
[2020-03-04 17:00] VITALS: BP 105/67
--- NOTE | 2020-03-04 19:20 | NUR ---
Received report from the Day Shift RNMaira Han. Pt. in bed quiet and resting. Initial assessment done.
--- NOTE | 2020-03-04 21:40 | NUR ---
Called/Notified Pharmacy about Cyclosporin NOT available @ the [place] [place]. Pharmacy will follow-up.
[2020-03-04] MEDS: ATORVASTATIN 20 MG TAB PO SCH (21:47)
--- NOTE | 2020-03-04 21:47 | NUR ---
Med. as scheduled given @ this time. Pt. made aware of the meds. as scheduled. Pt. verbalized partial understanding. Will reenforce health teaching about her medications during hospitalization.
[2020-03-04 22:00] VITALS: BP 113/60
--- NOTE | 2020-03-04 22:15 | NUR ---
Pharmacy Personnel Isabelle called and notified RAMONA Ratliff that the Cyclosporin -Neoral Modified Capsules 3 caps doses required for the pt. are not available @ this time. Medication will be available tomorrow.
--- NOTE | 2020-03-04 23:29 | NUR ---
Accucheck taken with result of BS = 173 , pt. will be given s/s of Regular Human insulin -see Emar.
--- NOTE | 2020-03-04 23:36 | NUR ---
Pt. given 4 units of Regular Human Insulin SQ @ the [facility] for BS = 173 , see Emar. Pt. made are of the blood sugar and Regular Human Insulin s/s coverage. Pt. verbalized understanding.
--- NOTE | 2020-03-05 00:30 | NUR ---
Pt. is sleeping undisturbed. Keep pt. room environment free from unnecessary noise and lights off. Call-light within pt.'s reach.
--- NOTE | 2020-03-05 04:00 | NUR ---
Pt. sleeping well, easily arousable by name. Keep pt. safe and core finisher bed. Call-light within reach @ the bedside.
[2020-03-05 05:00] VITALS: BP 107/59
[2020-03-05 05:43] LABS: Basophils # (auto) 0 10 ^3/uL (0-0.2); Basophils % (auto) 0.2 % (0.0-2.0); Eosinophils # (auto) 0 10 ^3/uL (0-0.8); Hematocrit 32.8 % (36.0-46.0); Hemoglobin 11.5 g/dL (12.2-16.2); Mean Corpuscular Volume 100.7 fL (80.0-100.0); Neutrophils # (auto) 1.9 10 ^3/uL (1.6-8.6); Nucleated Red Blood Cells % 0.4 %; Red Blood Cells 3.26 10^6/uL (4.0-5.20); Red Cell Distribution Width 14.2 % (11.8-14.3); White Blood Cell 5.4 10^3/uL (4.4-10.8)
[2020-03-05 05:44] LABS: Eosinophils % (auto) 0.3 % (0.0-7.0); Lymphocytes # (auto) 2.8 10 ^3/uL (0.4-5.4); Mean Corpuscular Hemoglobin 35.2 pg (28.0-32.0); Mean Corpuscular Hgb Conc. 34.9 g/dL (32.0-36.0); Monocytes # (auto) 0.6 10 ^3/uL (0-1.3); Monocytes % (auto) 11.9 % (0.0-12.0); Neutrophils % (auto) 35.6 % (37.0-80.0)
[2020-03-05 05:48] LABS: Platelet Count (auto) 6 10^3/uL (140-450)
--- NOTE | 2020-03-05 05:48 | NUR ---
Received call from Lab. Personnel Lawson that platelet result is = 6. Will Call and notify GILBERTO Bran.
[2020-03-05 06:00] LABS: BUN/Creatinine Ratio 42.7; Calcium 7.7 mg/dL (8.5-10.1)
--- NOTE | 2020-03-05 06:28 | NUR ---
GILBERTO Bran made aware of the Platelet result today of 6 from 5 yesterday. GILBERTO Bran aware. No further order given.
[2020-03-05] MEDS: InsuLIN REG 1unit/0.01ml Soln (100units/ml) SC SCH ×2 (06:58→11:38)
--- NOTE | 2020-03-05 07:30 | NUR ---
Opening Shift Note Assumed care of patient, patient is sitting in bed A&Ox4. No S/S of distress, dizziness, or SOB. Denies any pain at the moment. Instructed on POC and to call for assistance as needed, call light within reach. Safety measures in place, gurney set to lowest locked position x 2 rails up . Will continue to monitor for changes Q1hr and PRN.
[2020-03-05 09:00] VITALS: BP 111/57
[2020-03-05] MEDS: PANTOPRAZOLE 40 MG TAB PO SCH (09:59)
[2020-03-05] MEDS: INSULIN LANTUS (GLARGINE) 1 /0.01ml (100units/ml) SC SCH (10:00)
[2020-03-05] MEDS ORDERED: PROMACTA 50 MG PO SCH (10:00)
[2020-03-05] MEDS: amLODIPine BESYLATE 5 MG TAB PO SCH (10:01)
--- NOTE | 2020-03-05 11:14 | NUR ---
Received Cyclosporine from pharmacy.
--- NOTE | 2020-03-05 12:15 | NUR ---
DR. GALDAMEZ AT BEDSIDE PER MD GALDAMEZ, PATIENT CAN IS CLEARED FOR DISCHARGE. INFORMED MD GALLAGHER AND SHE WILL PUT IN DISCHARGE ORDERS. PER MD GALDAMEZ HE WANTS THE PATIENT'S DAUGHTER TO MODEL AND MOLD MAKER PLASTER PRESCRIPTIONS ON SUNDAY AT HIS OFFICE. PATIENT VERBALIZED UNDERSTANDING.
[2020-03-05 13:00] VITALS: BP 117/49
--- NOTE | 2020-03-05 13:54 | NUR ---
SPOKE WITH DR. AILEEN RICHARDS SAW PATIENT ALREADY AND NO PLAN WAS GIVEN. SO PATIENT CAN STILL BE DISCHARGED.
[2020-03-05 13:56] VITALS: BP 117/79
--- NOTE | 2020-03-05 15:51 | NUR ---
Discharge instructions given as ordered. Encourage to follow up with PMD as instructed. All questions and concerns addressed. Patient verbalized understanding. Medication reconciliation form completed and copy given to patient. Home medications held in Pharmacy returned to patient. IV removed with catheter intact, pressure dressing applied. Patient taken to vehicle via wheelchair with all personal belongings, accompanied by staff and family member. No distress noted at time of departure.
[2020-03-06 16:15] LABS: Platelet Count (auto) 7 10^3/uL (140-450)
== END 2020-03-05 15:50 | disposition home or self-care (01) | DRG 661 ==
LOC: ER 16:26 → OVERFLOW 16:27 → CENTRAL 22:41
PROVIDERS: ADMIT Nurse Practitioner; ATTEND Internal Medicine Nephrology
PROC: 30233R1 Transfusion of Nonautologous Platelets into Peripheral Vein, Percutaneous Approach (ICD-10-PCS; principal; 2020-02-25)
DX: D69.3 Immune thrombocytopenic purpura (principal); D61.818 Other pancytopenia; E11.22 Type 2 diabetes mellitus with diabetic chronic kidney disease; Z68.41 Body mass index [BMI] 40.0-44.9, adult; N18.3 Chronic kidney disease, stage 3 (moderate); E66.9 Obesity, unspecified; E78.00 Pure hypercholesterolemia, unspecified; R42 Dizziness and giddiness; R53.1 Weakness; I10 Essential (primary) hypertension; Z91.14 Patient's other noncompliance with medication regimen; E78.5 Hyperlipidemia, unspecified; I12.9 Hypertensive chronic kidney disease with stage 1 through stage 4 chronic kidney disease, or unspecified chronic kidney disease; Z82.49 Family history of ischemic heart disease and other diseases of the circulatory system
CPT/HCPCS: 36415; 70450; 70551; 71046; 80048; 80053; 80061; 81001; 82607; 82746; 82962; 83036; 83540; 83550; 83735; 84100; 84443; 84484; 85007; 85025; 85027; 85045; 85610; 85730; 86850; 86900; 86901; 93005; G0378; J1100; J1200; J1561; J1815; J7060

== ENCOUNTER 2021-06-10 15:42 | Inpatient (IN) | payer MEDICAID ==
[~2021-06-10] VITALS: Ht 165.1 cm; Wt 81.4 kg
[~2021-06-10 15:42] MED LIST: CYCL25CA7 PO; ELTR12.5 PO
[2021-06-10 16:36] LABS: Urine Bacteria FEW /hpf (None Seen); Urine Blood 1+ /uL (Negative); Urine Mucus FEW (None Seen); Urine Specific Gravity 1.016 (1.001-1.035); Urine WBC 44 /hpf (0 - 5)
[2021-06-10 16:37] LABS: Albumin 3.4 g/dL (3.4-5.0); Anion Gap 5 (5-15); Blood Urea Nitrogen 36 mg/dL (7-18); Calcium 8.4 mg/dL (8.5-10.1); Carbon Dioxide 22 mmol/L (21-32); Chloride 112 mmol/L (98-107); Glucose 248 mg/dL (74-106); Potassium 4.4 mmol/L (3.5-5.1); Sodium 139 mmol/L (136-145)
[2021-06-10 16:44] LABS: Alanine Aminotransferase 19 U/L (13-56); Alkaline Phosphatase 122 U/L (45-117); Aspartate Aminotransferase 13 U/L (15-37); BUN/Creatinine Ratio 27.7; Bilirubin, Total 1.3 mg/dL (0.2-1.0); GFR African American 52 mL/min; GFR Non-African American 43 mL/min; Total Protein 7.9 g/dL (6.4-8.2)
[2021-06-10 16:46] LABS: INR 0.96 (0.9-1.15); Partial Thromboplastin Time 23.9 sec (23.0-31.2)
[2021-06-10] MEDS ORDERED: cefTRIAXone 1GM/50ML D5W 50 ML IV ONE (17:00)
[2021-06-10 18:38] LABS: Hemoglobin 10.1 g/dL (12.2-16.2); Red Cell Distribution Width 14.3 % (11.8-14.3)
[2021-06-10 18:40] LABS: Hematocrit 29.7 % (36.0-46.0); Mean Corpuscular Hemoglobin 34.2 pg (28.0-32.0); Mean Corpuscular Hgb Conc. 34.1 g/dL (32.0-36.0); Mean Corpuscular Volume 100.3 fL (80.0-100.0); Red Blood Cells 2.96 10^6/uL (4.0-5.20)
[2021-06-10 19:12] LABS: Band Neutrophils % (manual) 0; Basophils % (manual) 0 (0.0-2.0); Blast Cells 0; Eosinophils % (manual) 0 (0-7); Metamyelocytes % 0; Myelocytes % 0; Promyelocytes % 0
[2021-06-10 19:15] LABS: Lymphocytes % (manual) 63 (10.0-50.0); Monocytes % (manual) 7 (0-12); Reactive Lymphocytes 5
[2021-06-10] MEDS ORDERED: HYDROcodone-ACET 5/325MG TAB PO PRN (20:30)
[2021-06-10] MEDS ORDERED: MORPHINE SULFATE 4 MG/ML SYR/VIAL IV PRN (20:30)
[2021-06-10] MEDS ORDERED: ONDANSETRON HCL 4 MG/2 ML VIAL IV PRN (20:30)
[2021-06-10 21:18] VITALS: BP 156/83
[2021-06-10 21:50] VITALS: BP 161/79
[2021-06-10] MEDS: methylPREDNISolone SOD SUCC 125 MG/2 ML VL IV SCH (22:00)
[2021-06-10] MEDS: ACETAMINOPHEN 325 MG TAB PO PRN (23:28)
[2021-06-11] VITALS (17 sets, daily range): BP systolic 129–174; BP diastolic 60–123
[2021-06-11 03:01] LABS: Basophils # (auto) 0 10 ^3/uL (0-0.2); Eosinophils # (auto) 0 10 ^3/uL (0-0.8); Lymphocytes # (auto) 0.3 10 ^3/uL (0.4-5.4); Monocytes # (auto) 0.1 10 ^3/uL (0-1.3)
[2021-06-11 03:03] LABS: Eosinophils % (auto) 0.6 % (0.0-7.0); Hematocrit 30.2 % (36.0-46.0); Hemoglobin 10.5 g/dL (12.2-16.2); Lymphocytes % (auto) 13.4 % (10.0-50.0); Mean Corpuscular Hemoglobin 34.2 pg (28.0-32.0); Mean Corpuscular Hgb Conc. 34.7 g/dL (32.0-36.0); Mean Corpuscular Volume 98.6 fL (80.0-100.0); Monocytes % (auto) 3.8 % (0.0-12.0); Neutrophils # (auto) 1.5 10 ^3/uL (1.6-8.6); Neutrophils % (auto) 82.2 % (37.0-80.0); Nucleated Red Blood Cells % 1.7 %; Red Blood Cells 3.06 10^6/uL (4.0-5.20); Red Cell Distribution Width 13.8 % (11.8-14.3)
[2021-06-11 03:19] LABS: White Blood Cell 1.9 10^3/uL (4.4-10.8)
[2021-06-11 03:20] LABS: BUN/Creatinine Ratio 25.4; Calcium 8.3 mg/dL (8.5-10.1); Magnesium 1.6 mg/dL (1.6-2.6); Potassium 3.8 mmol/L (3.5-5.1)
[2021-06-11] MEDS ORDERED: ELTR12.5 PO (03:26)
[2021-06-11 03:31] LABS: Lactic Acid w/Reflex 2.6 mmol/L (0.4-2.0)
[2021-06-11] MEDS: methylPREDNISolone SOD SUCC 125 MG/2 ML VL IV SCH ×3 (06:26→22:19)
[2021-06-11] MEDS ORDERED: PROMACTA 50 MG PO SCH (10:00)
[2021-06-11] MEDS: PROMACTA 50 MG PO SCH (10:00)
[2021-06-11] MEDS: cefTRIAXone 1GM/50ML D5W 50 ML IV SCH (11:00)
[2021-06-11] MEDS ORDERED: ACETAMINOPHEN 325 MG TAB PO PRN (15:30)
[2021-06-11] MEDS ORDERED: diphenhdrAMINE HCL 50 MG/1 ML VL IV PRN (15:30)
[2021-06-11] MEDS ORDERED: INSU1INJ19 SC (15:32)
[2021-06-11] MEDS ORDERED: OMEP20TA PO (15:32)
[2021-06-11] MEDS ORDERED: DEXTROSE (50%) 50ML SYRG IV PRN (18:45)
[2021-06-11 19:17] LABS: Eosinophils # (auto) 0 10 ^3/uL (0-0.8); Eosinophils % (auto) 0.1 % (0.0-7.0); Hemoglobin 10.9 g/dL (12.2-16.2); Lymphocytes # (auto) 0.5 10 ^3/uL (0.4-5.4); Mean Corpuscular Volume 99.7 fL (80.0-100.0); Neutrophils # (auto) 2.4 10 ^3/uL (1.6-8.6); Nucleated Red Blood Cells % 0.2 %
[2021-06-11 19:19] LABS: Basophils # (auto) 0.1 10 ^3/uL (0-0.2); Basophils % (auto) 3.4 % (0.0-2.0); Hematocrit 32.4 % (36.0-46.0); Mean Corpuscular Hemoglobin 33.5 pg (28.0-32.0); Mean Corpuscular Hgb Conc. 33.6 g/dL (32.0-36.0); Monocytes # (auto) 0.1 10 ^3/uL (0-1.3); Monocytes % (auto) 2.1 % (0.0-12.0); Neutrophils % (auto) 78.4 % (37.0-80.0); Red Blood Cells 3.25 10^6/uL (4.0-5.20); Red Cell Distribution Width 14.2 % (11.8-14.3)
[2021-06-11] MEDS: ACCU-CHEK COMFORT CURVE STRIP VI SCH (22:19)
[2021-06-11] MEDS: InsuLIN REG 1unit/0.01ml Soln (100units/ml) SC SCH (22:20)
[2021-06-12] VITALS (7 sets, daily range): BP systolic 132–165; BP diastolic 57–87
[2021-06-12] MEDS: methylPREDNISolone SOD SUCC 125 MG/2 ML VL IV SCH ×3 (06:00→22:16)
[2021-06-12 07:01] LABS: Eosinophils # (auto) 0 10 ^3/uL (0-0.8); Lymphocytes # (auto) 0.7 10 ^3/uL (0.4-5.4); Red Cell Distribution Width 14.1 % (11.8-14.3); White Blood Cell 4.2 10^3/uL (4.4-10.8)
[2021-06-12 07:04] LABS: Basophils # (auto) 0 10 ^3/uL (0-0.2); Hematocrit 29.2 % (36.0-46.0); Hemoglobin 9.8 g/dL (12.2-16.2); Mean Corpuscular Hemoglobin 33.8 pg (28.0-32.0); Mean Corpuscular Hgb Conc. 33.8 g/dL (32.0-36.0); Monocytes # (auto) 0.1 10 ^3/uL (0-1.3); Monocytes % (auto) 3.5 % (0.0-12.0); Neutrophils # (auto) 3.2 10 ^3/uL (1.6-8.6); Neutrophils % (auto) 77.5 % (37.0-80.0); Nucleated Red Blood Cells % 0.1 %; Red Blood Cells 2.92 10^6/uL (4.0-5.20)
[2021-06-12] MEDS: ACCU-CHEK COMFORT CURVE STRIP VI SCH ×3 (07:21→20:21)
[2021-06-12] MEDS: InsuLIN REG 1unit/0.01ml Soln (100units/ml) SC SCH ×3 (07:22→20:26)
[2021-06-12 07:23] LABS: BUN/Creatinine Ratio 28.5; Calcium 8.1 mg/dL (8.5-10.1); Potassium 3.9 mmol/L (3.5-5.1)
[2021-06-12] MEDS: PROMACTA 50 MG PO SCH (09:44)
[2021-06-12] MEDS: cefTRIAXone 1GM/50ML D5W 50 ML IV SCH (09:44)
[2021-06-12] MEDS ORDERED: INSULIN LANTUS (GLARGINE) 1 /0.01ml (100units/ml) SC ONE (12:15)
[2021-06-12] MEDS ORDERED: ELTR25PA PO (15:42)
[2021-06-12 16:47] LABS: BUN/Creatinine Ratio 25.4; Calcium 8.3 mg/dL (8.5-10.1)
[2021-06-13] MEDS: ACCU-CHEK COMFORT CURVE STRIP VI SCH ×7 (01:15→23:45)
[2021-06-13] MEDS: InsuLIN REG 1unit/0.01ml Soln (100units/ml) SC SCH ×7 (01:16→23:46)
[2021-06-13 05:02] LABS: Basophils # (auto) 0.1 10 ^3/uL (0-0.2); Basophils % (auto) 2.5 % (0.0-2.0); Eosinophils # (auto) 0 10 ^3/uL (0-0.8); Eosinophils % (auto) 0.1 % (0.0-7.0); Hematocrit 28.7 % (36.0-46.0); Hemoglobin 9.9 g/dL (12.2-16.2); Lymphocytes # (auto) 0.9 10 ^3/uL (0.4-5.4); Mean Corpuscular Hemoglobin 33.8 pg (28.0-32.0); Mean Corpuscular Hgb Conc. 34.4 g/dL (32.0-36.0); Mean Corpuscular Volume 98.2 fL (80.0-100.0); Monocytes # (auto) 0.2 10 ^3/uL (0-1.3); Neutrophils # (auto) 3.5 10 ^3/uL (1.6-8.6); Neutrophils % (auto) 74.4 % (37.0-80.0); Nucleated Red Blood Cells % 0.1 %; Red Blood Cells 2.92 10^6/uL (4.0-5.20); White Blood Cell 4.6 10^3/uL (4.4-10.8)
[2021-06-13 05:14] LABS: BUN/Creatinine Ratio 32.4; Calcium 8.3 mg/dL (8.5-10.1); Potassium 3.8 mmol/L (3.5-5.1)
[2021-06-13 05:16] VITALS: BP 158/78
[2021-06-13] MEDS: methylPREDNISolone SOD SUCC 125 MG/2 ML VL IV SCH ×3 (06:28→22:00)
[2021-06-13 09:00] VITALS: BP 94/57
[2021-06-13] MEDS: cefTRIAXone 1GM/50ML D5W 50 ML IV SCH (10:33)
[2021-06-13] MEDS: PROMACTA 50 MG PO SCH (10:33)
[2021-06-13] MEDS: INSULIN LANTUS (GLARGINE) 1 /0.01ml (100units/ml) SC SCH (10:35)
[2021-06-13 13:00] VITALS: BP 120/70
[2021-06-13 17:00] VITALS: BP 150/71
[2021-06-13 22:00] VITALS: BP 115/64
[2021-06-14] MEDS: InsuLIN REG 1unit/0.01ml Soln (100units/ml) SC SCH ×6 (04:00→23:54)
[2021-06-14] MEDS: ACCU-CHEK COMFORT CURVE STRIP VI SCH ×6 (04:00→23:52)
[2021-06-14 05:00] VITALS: BP 123/75
[2021-06-14 05:20] LABS: Basophils # (auto) 0.1 10 ^3/uL (0-0.2); Eosinophils # (auto) 0 10 ^3/uL (0-0.8); Hemoglobin 10.2 g/dL (12.2-16.2); Monocytes # (auto) 0.3 10 ^3/uL (0-1.3); White Blood Cell 4.2 10^3/uL (4.4-10.8)
[2021-06-14 05:23] LABS: Basophils % (auto) 1.5 % (0.0-2.0); Hematocrit 29.6 % (36.0-46.0); Lymphocytes # (auto) 1.2 10 ^3/uL (0.4-5.4); Lymphocytes % (auto) 29.8 % (10.0-50.0); Mean Corpuscular Hemoglobin 33.8 pg (28.0-32.0); Mean Corpuscular Hgb Conc. 34.5 g/dL (32.0-36.0); Mean Corpuscular Volume 97.8 fL (80.0-100.0); Monocytes % (auto) 6.5 % (0.0-12.0); Neutrophils # (auto) 2.6 10 ^3/uL (1.6-8.6); Neutrophils % (auto) 62.2 % (37.0-80.0); Nucleated Red Blood Cells % 0.2 %; Red Blood Cells 3.03 10^6/uL (4.0-5.20); Red Cell Distribution Width 13.9 % (11.8-14.3)
[2021-06-14 05:37] LABS: Potassium 3.8 mmol/L (3.5-5.1)
[2021-06-14 05:42] LABS: BUN/Creatinine Ratio 45.2; Calcium 8.4 mg/dL (8.5-10.1)
[2021-06-14] MEDS: methylPREDNISolone SOD SUCC 125 MG/2 ML VL IV SCH ×3 (05:45→21:40)
[2021-06-14 08:56] VITALS: BP 114/57
[2021-06-14] MEDS: cefTRIAXone 1GM/50ML D5W 50 ML IV SCH (09:26)
[2021-06-14] MEDS: PROMACTA 50 MG PO SCH (09:27)
[2021-06-14] MEDS: PANTOPRAZOLE 40 MG TAB PO SCH (09:27)
[2021-06-14] MEDS: INSULIN LANTUS (GLARGINE) 1 /0.01ml (100units/ml) SC SCH (09:30)
[2021-06-14] MEDS ORDERED: LOPERAMIDE 1 mg/7.5ml ORAL soln PO PRN (11:30)
[2021-06-14 12:51] VITALS: BP 132/77
[2021-06-14 17:00] VITALS: BP 155/85
[2021-06-14 22:14] VITALS: BP 105/56
[2021-06-15] MEDS: ACCU-CHEK COMFORT CURVE STRIP VI SCH ×6 (04:17→23:59)
[2021-06-15] MEDS: InsuLIN REG 1unit/0.01ml Soln (100units/ml) SC SCH ×5 (04:18→20:12)
[2021-06-15 05:00] VITALS: BP 121/74
[2021-06-15] MEDS: methylPREDNISolone SOD SUCC 125 MG/2 ML VL IV SCH ×3 (05:55→21:27)
[2021-06-15 08:18] LABS: Eosinophils # (auto) 0 10 ^3/uL (0-0.8); Monocytes # (auto) 0.2 10 ^3/uL (0-1.3); Nucleated Red Blood Cells % 0.2 %
[2021-06-15 08:19] LABS: Basophils # (auto) 0.1 10 ^3/uL (0-0.2); Basophils % (auto) 2.3 % (0.0-2.0); Eosinophils % (auto) 0.2 % (0.0-7.0); Hematocrit 30.5 % (36.0-46.0); Hemoglobin 10.5 g/dL (12.2-16.2); Lymphocytes # (auto) 1.2 10 ^3/uL (0.4-5.4); Mean Corpuscular Hemoglobin 33.7 pg (28.0-32.0); Mean Corpuscular Hgb Conc. 34.5 g/dL (32.0-36.0); Mean Corpuscular Volume 97.5 fL (80.0-100.0); Neutrophils # (auto) 2.3 10 ^3/uL (1.6-8.6); Neutrophils % (auto) 60.5 % (37.0-80.0); Red Blood Cells 3.13 10^6/uL (4.0-5.20); Red Cell Distribution Width 13.8 % (11.8-14.3); White Blood Cell 3.8 10^3/uL (4.4-10.8)
[2021-06-15 08:48] LABS: Potassium 3.7 mmol/L (3.5-5.1)
[2021-06-15 08:50] LABS: BUN/Creatinine Ratio 41.7
[2021-06-15 09:00] VITALS: BP 139/81
[2021-06-15] MEDS: PANTOPRAZOLE 40 MG TAB PO SCH (09:56)
[2021-06-15] MEDS: cefTRIAXone 1GM/50ML D5W 50 ML IV SCH (09:56)
[2021-06-15] MEDS: PROMACTA 50 MG PO SCH (09:56)
[2021-06-15] MEDS: INSULIN LANTUS (GLARGINE) 1 /0.01ml (100units/ml) SC SCH (09:57)
[2021-06-15 13:00] VITALS: BP 136/75
[2021-06-15 17:21] VITALS: BP 122/73
[2021-06-15 22:00] VITALS: BP 110/58
[2021-06-16 00:42] LABS: Urine Bacteria MOD /hpf (None Seen); Urine Blood 3+ /uL (Negative); Urine Hyaline Cast FEW /lpf (0 - 2); Urine Mucus FEW (None Seen); Urine Specific Gravity 1.011 (1.001-1.035); Urine WBC 6 /hpf (0 - 5)
[2021-06-16] MEDS: ACCU-CHEK COMFORT CURVE STRIP VI SCH ×5 (04:50→20:00)
[2021-06-16] MEDS: InsuLIN REG 1unit/0.01ml Soln (100units/ml) SC SCH ×6 (04:51→20:00)
[2021-06-16 05:00] VITALS: BP 140/79
[2021-06-16] MEDS: methylPREDNISolone SOD SUCC 125 MG/2 ML VL IV SCH ×3 (06:08→21:45)
[2021-06-16 09:06] VITALS: BP 118/62
[2021-06-16] MEDS: PROMACTA 50 MG PO SCH (09:55)
[2021-06-16] MEDS: INSULIN LANTUS (GLARGINE) 1 /0.01ml (100units/ml) SC SCH (09:56)
[2021-06-16] MEDS: PANTOPRAZOLE 40 MG TAB PO SCH (09:56)
[2021-06-16] MEDS: levoFLOXacin 500MG 100 ML IV SCH (10:11)
[2021-06-16 13:00] VITALS: BP 149/82
[2021-06-16] MEDS ORDERED: diphenhdrAMINE HCL 50 MG/1 ML VL IV SCH (15:00)
[2021-06-16] MEDS ORDERED: ACETAMINOPHEN 325 MG TAB PO SCH (15:00)
[2021-06-16] MEDS ORDERED: SODIUM CHL 0.9% IV SCH ×3 (15:30→16:30)
[2021-06-16] MEDS ORDERED: RITUXIMAB IV SCH ×3 (15:30→16:30)
[2021-06-16 17:00] VITALS: BP 170/82
[2021-06-16 20:00] VITALS: BP 156/86
[2021-06-16 22:00] VITALS: BP 161/74
[2021-06-17] MEDS: ACCU-CHEK COMFORT CURVE STRIP VI SCH ×6 (00:02→20:00)
[2021-06-17] MEDS: InsuLIN REG 1unit/0.01ml Soln (100units/ml) SC SCH ×6 (00:04→21:04)
[2021-06-17 05:00] VITALS: BP 131/74
[2021-06-17 05:25] LABS: Basophils # (auto) 0 10 ^3/uL (0-0.2); Eosinophils # (auto) 0 10 ^3/uL (0-0.8); Hematocrit 31.6 % (36.0-46.0); Hemoglobin 11.1 g/dL (12.2-16.2); Lymphocytes # (auto) 0.8 10 ^3/uL (0.4-5.4); Mean Corpuscular Hemoglobin 34.2 pg (28.0-32.0); Monocytes # (auto) 0.2 10 ^3/uL (0-1.3); Red Blood Cells 3.25 10^6/uL (4.0-5.20); Red Cell Distribution Width 13.8 % (11.8-14.3); White Blood Cell 3.7 10^3/uL (4.4-10.8)
[2021-06-17 05:29] LABS: Basophils % (auto) 0.9 % (0.0-2.0); Eosinophils % (auto) 0.1 % (0.0-7.0); Lymphocytes % (auto) 20.7 % (10.0-50.0); Mean Corpuscular Hgb Conc. 35.1 g/dL (32.0-36.0); Mean Corpuscular Volume 97.3 fL (80.0-100.0); Neutrophils # (auto) 2.7 10 ^3/uL (1.6-8.6); Neutrophils % (auto) 72.3 % (37.0-80.0); Nucleated Red Blood Cells % 0.8 %
[2021-06-17] MEDS: methylPREDNISolone SOD SUCC 125 MG/2 ML VL IV SCH ×3 (06:11→22:40)
[2021-06-17 08:48] VITALS: BP 138/79
[2021-06-17] MEDS: PANTOPRAZOLE 40 MG TAB PO SCH (09:53)
[2021-06-17] MEDS: levoFLOXacin 500MG 100 ML IV SCH (09:53)
[2021-06-17] MEDS: PROMACTA 50 MG PO SCH (09:53)
[2021-06-17] MEDS: INSULIN LANTUS (GLARGINE) 1 /0.01ml (100units/ml) SC SCH (09:54)
[2021-06-17 13:00] VITALS: BP 161/91
[2021-06-17 16:51] VITALS: BP 143/72
[2021-06-17 22:00] VITALS: BP 133/65
[2021-06-18] MEDS: ACCU-CHEK COMFORT CURVE STRIP VI SCH ×6 (00:17→20:00)
[2021-06-18] MEDS: InsuLIN REG 1unit/0.01ml Soln (100units/ml) SC SCH ×6 (00:19→20:51)
[2021-06-18 05:00] VITALS: BP 123/62
[2021-06-18] MEDS: methylPREDNISolone SOD SUCC 125 MG/2 ML VL IV SCH ×3 (05:52→21:58)
[2021-06-18 07:32] LABS: Basophils # (auto) 0 10 ^3/uL (0-0.2); Eosinophils # (auto) 0 10 ^3/uL (0-0.8); Hemoglobin 10.6 g/dL (12.2-16.2); Mean Corpuscular Hgb Conc. 35.3 g/dL (32.0-36.0); Mean Corpuscular Volume 96.5 fL (80.0-100.0); Monocytes # (auto) 0.2 10 ^3/uL (0-1.3); Neutrophils # (auto) 1.8 10 ^3/uL (1.6-8.6); Nucleated Red Blood Cells % 0.5 %; White Blood Cell 2.9 10^3/uL (4.4-10.8)
[2021-06-18 07:35] LABS: Hematocrit 30.1 % (36.0-46.0); Lymphocytes # (auto) 0.9 10 ^3/uL (0.4-5.4); Lymphocytes % (auto) 29.7 % (10.0-50.0); Mean Corpuscular Hemoglobin 34.1 pg (28.0-32.0); Monocytes % (auto) 8.5 % (0.0-12.0); Neutrophils % (auto) 60.8 % (37.0-80.0); Red Blood Cells 3.12 10^6/uL (4.0-5.20)
[2021-06-18 07:42] LABS: Potassium 4.1 mmol/L (3.5-5.1)
[2021-06-18 07:46] LABS: BUN/Creatinine Ratio 43.7
[2021-06-18 09:00] VITALS: BP 137/71
[2021-06-18] MEDS: levoFLOXacin 500MG 100 ML IV SCH (09:30)
[2021-06-18] MEDS: PANTOPRAZOLE 40 MG TAB PO SCH (09:30)
[2021-06-18] MEDS: PROMACTA 50 MG PO SCH (09:30)
[2021-06-18] MEDS: INSULIN LANTUS (GLARGINE) 1 /0.01ml (100units/ml) SC SCH (09:31)
[2021-06-18 13:00] VITALS: BP 148/76
[2021-06-18 17:00] VITALS: BP 130/64
[2021-06-18 22:00] VITALS: BP 137/78
[2021-06-19] MEDS: InsuLIN REG 1unit/0.01ml Soln (100units/ml) SC SCH ×6 (00:47→21:10)
[2021-06-19] MEDS: ACCU-CHEK COMFORT CURVE STRIP VI SCH ×6 (04:35→21:05)
[2021-06-19 05:00] VITALS: BP 120/74
[2021-06-19 05:43] LABS: Basophils # (auto) 0 10 ^3/uL (0-0.2); Eosinophils # (auto) 0 10 ^3/uL (0-0.8); Hemoglobin 10.9 g/dL (12.2-16.2); Lymphocytes # (auto) 0.8 10 ^3/uL (0.4-5.4); Mean Corpuscular Hgb Conc. 35.2 g/dL (32.0-36.0); Monocytes # (auto) 0.3 10 ^3/uL (0-1.3); White Blood Cell 3.4 10^3/uL (4.4-10.8)
[2021-06-19 05:45] LABS: Basophils % (auto) 0.6 % (0.0-2.0); Hematocrit 31.1 % (36.0-46.0); Lymphocytes % (auto) 23.7 % (10.0-50.0); Mean Corpuscular Hemoglobin 34.1 pg (28.0-32.0); Mean Corpuscular Volume 96.9 fL (80.0-100.0); Monocytes % (auto) 8.1 % (0.0-12.0); Neutrophils # (auto) 2.3 10 ^3/uL (1.6-8.6); Neutrophils % (auto) 67.6 % (37.0-80.0); Nucleated Red Blood Cells % 0.7 %; Red Blood Cells 3.21 10^6/uL (4.0-5.20)
[2021-06-19 06:04] LABS: Albumin 2.5 g/dL (3.4-5.0); Potassium 4.1 mmol/L (3.5-5.1)
[2021-06-19 06:08] LABS: BUN/Creatinine Ratio 40.7; Bilirubin, Total 1.2 mg/dL (0.2-1.0); CRP High Sensitivity 0.19 mg/dL (< 0.3); Calcium 7.6 mg/dL (8.5-10.1); Total Protein 7.7 g/dL (6.4-8.2)
[2021-06-19 06:13] LABS: Ferritin 557.4 ng/mL (10-322)
[2021-06-19 06:25] LABS: % Iron Saturation 73.1 % (15-50)
[2021-06-19] MEDS: methylPREDNISolone SOD SUCC 125 MG/2 ML VL IV SCH ×3 (06:27→21:13)
[2021-06-19 09:00] VITALS: BP 141/77
[2021-06-19] MEDS: PANTOPRAZOLE 40 MG TAB PO SCH (10:28)
[2021-06-19] MEDS: levoFLOXacin 500MG 100 ML IV SCH (10:29)
[2021-06-19] MEDS: INSULIN LANTUS (GLARGINE) 1 /0.01ml (100units/ml) SC SCH (11:50)
[2021-06-19] MEDS: PROMACTA 50 MG PO SCH (12:54)
[2021-06-19 13:00] VITALS: BP 103/53
[2021-06-19 16:30] VITALS: BP 150/75
[2021-06-19 20:00] VITALS: BP 150/77
[2021-06-20] VITALS (7 sets, daily range): BP systolic 124–161; BP diastolic 49–83
[2021-06-20] MEDS: ACCU-CHEK COMFORT CURVE STRIP VI SCH ×6 (00:43→20:26)
[2021-06-20] MEDS: InsuLIN REG 1unit/0.01ml Soln (100units/ml) SC SCH ×6 (00:46→20:28)
[2021-06-20] MEDS: methylPREDNISolone SOD SUCC 125 MG/2 ML VL IV SCH ×3 (05:14→21:45)
[2021-06-20 06:49] LABS: Basophils # (auto) 0 10 ^3/uL (0-0.2); Eosinophils # (auto) 0 10 ^3/uL (0-0.8); Lymphocytes # (auto) 0.7 10 ^3/uL (0.4-5.4); Lymphocytes % (auto) 22.4 % (10.0-50.0); Monocytes # (auto) 0.2 10 ^3/uL (0-1.3); Neutrophils # (auto) 2.2 10 ^3/uL (1.6-8.6); Red Blood Cells 3.01 10^6/uL (4.0-5.20)
[2021-06-20 06:51] LABS: Basophils % (auto) 0.8 % (0.0-2.0); Eosinophils % (auto) 0.1 % (0.0-7.0); Hematocrit 29.4 % (36.0-46.0); Hemoglobin 10.4 g/dL (12.2-16.2); Mean Corpuscular Hemoglobin 34.4 pg (28.0-32.0); Mean Corpuscular Hgb Conc. 35.3 g/dL (32.0-36.0); Mean Corpuscular Volume 97.4 fL (80.0-100.0); Monocytes % (auto) 6.6 % (0.0-12.0); Neutrophils % (auto) 70.1 % (37.0-80.0); Nucleated Red Blood Cells % 0.7 %; Red Cell Distribution Width 14.2 % (11.8-14.3); White Blood Cell 3.1 10^3/uL (4.4-10.8)
[2021-06-20 07:22] LABS: BUN/Creatinine Ratio 41.8; Potassium 4.6 mmol/L (3.5-5.1)
[2021-06-20] MEDS: PANTOPRAZOLE 40 MG TAB PO SCH (10:12)
[2021-06-20] MEDS: levoFLOXacin 500MG 100 ML IV SCH (10:13)
[2021-06-20] MEDS: PROMACTA 50 MG PO SCH (10:14)
[2021-06-20] MEDS: INSULIN LANTUS (GLARGINE) 1 /0.01ml (100units/ml) SC SCH (10:19)
[2021-06-20 14:35] LABS: Folate (Folic Acid) 9.25 ng/mL (5.38-24)
[2021-06-21] VITALS (9 sets, daily range): BP systolic 104–147; BP diastolic 56–76
[2021-06-21] MEDS: InsuLIN REG 1unit/0.01ml Soln (100units/ml) SC SCH ×6 (00:55→20:12)
[2021-06-21] MEDS: ACCU-CHEK COMFORT CURVE STRIP VI SCH ×6 (00:55→20:08)
[2021-06-21] MEDS: methylPREDNISolone SOD SUCC 125 MG/2 ML VL IV SCH ×3 (05:22→21:45)
[2021-06-21 05:36] LABS: Basophils # (auto) 0 10 ^3/uL (0-0.2); Eosinophils # (auto) 0 10 ^3/uL (0-0.8); Monocytes # (auto) 0.2 10 ^3/uL (0-1.3); White Blood Cell 3.7 10^3/uL (4.4-10.8)
[2021-06-21 05:39] LABS: Basophils % (auto) 1.1 % (0.0-2.0); Hematocrit 28.9 % (36.0-46.0); Hemoglobin 10.1 g/dL (12.2-16.2); Lymphocytes # (auto) 0.8 10 ^3/uL (0.4-5.4); Lymphocytes % (auto) 20.5 % (10.0-50.0); Mean Corpuscular Hemoglobin 34.2 pg (28.0-32.0); Mean Corpuscular Volume 97.9 fL (80.0-100.0); Monocytes % (auto) 5.4 % (0.0-12.0); Neutrophils # (auto) 2.7 10 ^3/uL (1.6-8.6); Nucleated Red Blood Cells % 0.3 %; Red Blood Cells 2.95 10^6/uL (4.0-5.20); Red Cell Distribution Width 14.3 % (11.8-14.3)
[2021-06-21 06:06] LABS: Potassium 4.2 mmol/L (3.5-5.1)
[2021-06-21 06:15] LABS: Calcium 7.6 mg/dL (8.5-10.1)
[2021-06-21] MEDS: levoFLOXacin 500MG 100 ML IV SCH (10:11)
[2021-06-21] MEDS: PROMACTA 50 MG PO SCH (10:11)
[2021-06-21] MEDS: PANTOPRAZOLE 40 MG TAB PO SCH (10:12)
[2021-06-21] MEDS: INSULIN LANTUS (GLARGINE) 1 /0.01ml (100units/ml) SC SCH (10:13)
[2021-06-21] MEDS ORDERED: diphenhdrAMINE HCL 50 MG/1 ML VL IV ONE (13:00)
[2021-06-21] MEDS ORDERED: ACETAMINOPHEN 325 MG TAB PO ONE (13:00)
[2021-06-22] MEDS: ACCU-CHEK COMFORT CURVE STRIP VI SCH ×7 (00:52→23:10)
[2021-06-22] MEDS: InsuLIN REG 1unit/0.01ml Soln (100units/ml) SC SCH ×7 (00:59→23:10)
[2021-06-22 05:00] VITALS: BP 131/73
[2021-06-22 05:09] LABS: Basophils # (auto) 0 10 ^3/uL (0-0.2); Eosinophils # (auto) 0 10 ^3/uL (0-0.8); Monocytes # (auto) 0.5 10 ^3/uL (0-1.3)
[2021-06-22 05:12] LABS: Basophils % (auto) 0.4 % (0.0-2.0); Hematocrit 28.2 % (36.0-46.0); Lymphocytes # (auto) 0.4 10 ^3/uL (0.4-5.4); Lymphocytes % (auto) 5.1 % (10.0-50.0); Mean Corpuscular Hemoglobin 34.8 pg (28.0-32.0); Mean Corpuscular Hgb Conc. 35.4 g/dL (32.0-36.0); Mean Corpuscular Volume 98.3 fL (80.0-100.0); Monocytes % (auto) 7.2 % (0.0-12.0); Neutrophils % (auto) 87.3 % (37.0-80.0); Nucleated Red Blood Cells % 0.2 %; Red Blood Cells 2.87 10^6/uL (4.0-5.20); Red Cell Distribution Width 14.5 % (11.8-14.3); White Blood Cell 6.9 10^3/uL (4.4-10.8)
[2021-06-22] MEDS: methylPREDNISolone SOD SUCC 125 MG/2 ML VL IV SCH ×3 (05:36→21:58)
[2021-06-22 05:39] LABS: Calcium 7.5 mg/dL (8.5-10.1); Potassium 4.5 mmol/L (3.5-5.1)
[2021-06-22 05:41] LABS: BUN/Creatinine Ratio 39.2
[2021-06-22 08:00] VITALS: BP 143/75
[2021-06-22 09:00] VITALS: BP 143/75
[2021-06-22] MEDS: PANTOPRAZOLE 40 MG TAB PO SCH (10:46)
[2021-06-22] MEDS: PROMACTA 50 MG PO SCH (10:47)
[2021-06-22] MEDS: levoFLOXacin 500MG 100 ML IV SCH (10:47)
[2021-06-22] MEDS: INSULIN LANTUS (GLARGINE) 1 /0.01ml (100units/ml) SC SCH (10:57)
[2021-06-22] MEDS ORDERED: IOHEXOL 300 MG/ML 100ML BOTTLE IJ ONE (11:10)
[2021-06-22 13:00] VITALS: BP 139/69
[2021-06-22 16:53] VITALS: BP 148/77
[2021-06-22] MEDS: ACETAMINOPHEN 325 MG TAB PO PRN (20:40)
[2021-06-22 22:00] VITALS: BP 153/67
[2021-06-22] MEDS ORDERED: INSULIN LANTUS (GLARGINE) 1 /0.01ml (100units/ml) SC ONE (22:45)
[2021-06-23] MEDS: ACCU-CHEK COMFORT CURVE STRIP VI SCH ×5 (04:25→22:10)
[2021-06-23] MEDS: InsuLIN REG 1unit/0.01ml Soln (100units/ml) SC SCH ×5 (04:26→20:00)
[2021-06-23 04:37] VITALS: BP 149/71
[2021-06-23 05:33] LABS: Basophils # (auto) 0 10 ^3/uL (0-0.2); Eosinophils # (auto) 0 10 ^3/uL (0-0.8); Lymphocytes # (auto) 0.4 10 ^3/uL (0.4-5.4); Lymphocytes % (auto) 11.3 % (10.0-50.0)
[2021-06-23 05:37] LABS: Basophils % (auto) 0.5 % (0.0-2.0); Hematocrit 27.4 % (36.0-46.0); Mean Corpuscular Hemoglobin 35.9 pg (28.0-32.0); Mean Corpuscular Volume 98.3 fL (80.0-100.0); Monocytes # (auto) 0.2 10 ^3/uL (0-1.3); Monocytes % (auto) 6.4 % (0.0-12.0); Neutrophils % (auto) 81.8 % (37.0-80.0); Nucleated Red Blood Cells % 0.3 %; Red Blood Cells 2.78 10^6/uL (4.0-5.20); Red Cell Distribution Width 14.5 % (11.8-14.3); White Blood Cell 3.7 10^3/uL (4.4-10.8)
[2021-06-23] MEDS: methylPREDNISolone SOD SUCC 125 MG/2 ML VL IV SCH ×3 (05:53→22:00)
[2021-06-23 05:54] LABS: Calcium 7.6 mg/dL (8.5-10.1); Mean Corpuscular Hgb Conc. 36.5 g/dL (32.0-36.0); Potassium 4.4 mmol/L (3.5-5.1)
[2021-06-23 05:56] LABS: BUN/Creatinine Ratio 40.2
[2021-06-23 09:00] VITALS: BP 131/78
[2021-06-23] MEDS: INSULIN LANTUS (GLARGINE) 1 /0.01ml (100units/ml) SC SCH ×3 (09:10→22:00)
[2021-06-23] MEDS: levoFLOXacin 500MG 100 ML IV SCH (09:10)
[2021-06-23] MEDS: PANTOPRAZOLE 40 MG TAB PO SCH (09:11)
[2021-06-23] MEDS: PROMACTA 50 MG PO SCH (09:12)
[2021-06-23 13:00] VITALS: BP 125/63
[2021-06-23] MEDS: ACETAMINOPHEN 325 MG TAB PO SCH (15:33)
[2021-06-23] MEDS: diphenhdrAMINE HCL 50 MG/1 ML VL IV SCH (15:34)
[2021-06-23] MEDS: RITUXIMAB IV SCH (16:27)
[2021-06-23] MEDS: SODIUM CHL 0.9% IV SCH (16:27)
[2021-06-23 17:00] VITALS: BP 152/77
[2021-06-23 22:00] VITALS: BP 125/63
[2021-06-24] MEDS: ACCU-CHEK COMFORT CURVE STRIP VI SCH ×6 (00:11→21:43)
[2021-06-24] MEDS: InsuLIN REG 1unit/0.01ml Soln (100units/ml) SC SCH ×6 (04:19→22:08)
[2021-06-24 05:00] VITALS: BP 113/56
[2021-06-24 05:15] LABS: Basophils # (auto) 0 10 ^3/uL (0-0.2); Eosinophils # (auto) 0 10 ^3/uL (0-0.8); Hemoglobin 10.5 g/dL (12.2-16.2); Lymphocytes # (auto) 0.6 10 ^3/uL (0.4-5.4); Neutrophils # (auto) 2.7 10 ^3/uL (1.6-8.6); Nucleated Red Blood Cells % 0.7 %; White Blood Cell 3.6 10^3/uL (4.4-10.8)
[2021-06-24 05:30] LABS: Basophils % (auto) 0.4 % (0.0-2.0); Hematocrit 29.5 % (36.0-46.0); Lymphocytes % (auto) 17.3 % (10.0-50.0); Mean Corpuscular Hemoglobin 35.1 pg (28.0-32.0); Mean Corpuscular Hgb Conc. 35.7 g/dL (32.0-36.0); Mean Corpuscular Volume 98.3 fL (80.0-100.0); Monocytes # (auto) 0.2 10 ^3/uL (0-1.3); Monocytes % (auto) 6.6 % (0.0-12.0); Neutrophils % (auto) 75.7 % (37.0-80.0); Red Cell Distribution Width 14.7 % (11.8-14.3)
[2021-06-24 05:56] LABS: Calcium 7.9 mg/dL (8.5-10.1); Potassium 4.6 mmol/L (3.5-5.1)
[2021-06-24 05:58] LABS: BUN/Creatinine Ratio 38.5
[2021-06-24] MEDS: methylPREDNISolone SOD SUCC 125 MG/2 ML VL IV SCH ×3 (06:36→21:43)
[2021-06-24] MEDS: PANTOPRAZOLE 40 MG TAB PO SCH (08:49)
[2021-06-24] MEDS: levoFLOXacin 500MG 100 ML IV SCH (08:50)
[2021-06-24 08:52] VITALS: BP 133/79
[2021-06-24] MEDS: INSULIN LANTUS (GLARGINE) 1 /0.01ml (100units/ml) SC SCH ×2 (09:45→22:31)
[2021-06-24] MEDS: PROMACTA 50 MG PO SCH (10:40)
[2021-06-24 12:45] VITALS: BP 135/72
[2021-06-24 16:38] VITALS: BP 143/68
[2021-06-24 21:56] VITALS: BP 131/60
[2021-06-25] MEDS: ACCU-CHEK COMFORT CURVE STRIP VI SCH ×6 (04:00→20:00)
[2021-06-25] MEDS: InsuLIN REG 1unit/0.01ml Soln (100units/ml) SC SCH ×6 (04:45→20:00)
[2021-06-25 04:54] VITALS: BP 115/63
[2021-06-25 05:20] LABS: Basophils # (auto) 0 10 ^3/uL (0-0.2); Eosinophils # (auto) 0 10 ^3/uL (0-0.8); Lymphocytes % (auto) 17.3 % (10.0-50.0); Monocytes # (auto) 0.2 10 ^3/uL (0-1.3); White Blood Cell 3.2 10^3/uL (4.4-10.8)
[2021-06-25 05:24] LABS: Hematocrit 28.4 % (36.0-46.0); Lymphocytes # (auto) 0.5 10 ^3/uL (0.4-5.4); Mean Corpuscular Hemoglobin 34.7 pg (28.0-32.0); Mean Corpuscular Hgb Conc. 35.1 g/dL (32.0-36.0); Mean Corpuscular Volume 98.8 fL (80.0-100.0); Neutrophils # (auto) 2.4 10 ^3/uL (1.6-8.6); Neutrophils % (auto) 74.7 % (37.0-80.0); Nucleated Red Blood Cells % 0.6 %; Red Blood Cells 2.88 10^6/uL (4.0-5.20); Red Cell Distribution Width 14.8 % (11.8-14.3)
[2021-06-25] MEDS: methylPREDNISolone SOD SUCC 125 MG/2 ML VL IV SCH ×3 (06:01→22:00)
[2021-06-25 09:00] VITALS: BP 127/72
[2021-06-25] MEDS: levoFLOXacin 500MG 100 ML IV SCH (10:10)
[2021-06-25] MEDS: PROMACTA 50 MG PO SCH (10:10)
[2021-06-25] MEDS: PANTOPRAZOLE 40 MG TAB PO SCH (10:11)
[2021-06-25] MEDS: INSULIN LANTUS (GLARGINE) 1 /0.01ml (100units/ml) SC SCH ×2 (10:13→22:00)
[2021-06-25 13:00] VITALS: BP 157/89
[2021-06-25 16:42] VITALS: BP 132/86
[2021-06-25 22:00] VITALS: BP 129/65
[2021-06-26] MEDS: InsuLIN REG 1unit/0.01ml Soln (100units/ml) SC SCH ×6 (00:17→20:15)
[2021-06-26] MEDS: ACCU-CHEK COMFORT CURVE STRIP VI SCH ×6 (04:22→20:04)
[2021-06-26 05:00] VITALS: BP 110/54
[2021-06-26 05:15] LABS: Basophils # (auto) 0 10 ^3/uL (0-0.2); Eosinophils # (auto) 0 10 ^3/uL (0-0.8); Lymphocytes # (auto) 0.4 10 ^3/uL (0.4-5.4); Mean Corpuscular Volume 99.9 fL (80.0-100.0); Monocytes # (auto) 0.2 10 ^3/uL (0-1.3); White Blood Cell 2.7 10^3/uL (4.4-10.8)
[2021-06-26 05:18] LABS: Basophils % (auto) 1.4 % (0.0-2.0); Hematocrit 28.8 % (36.0-46.0); Mean Corpuscular Hemoglobin 34.7 pg (28.0-32.0); Mean Corpuscular Hgb Conc. 34.8 g/dL (32.0-36.0); Monocytes % (auto) 7.8 % (0.0-12.0); Neutrophils % (auto) 74.8 % (37.0-80.0); Nucleated Red Blood Cells % 0.7 %; Red Blood Cells 2.89 10^6/uL (4.0-5.20); Red Cell Distribution Width 15.1 % (11.8-14.3)
[2021-06-26] MEDS: methylPREDNISolone SOD SUCC 125 MG/2 ML VL IV SCH ×3 (06:00→22:12)
[2021-06-26] MEDS: levoFLOXacin 500MG 100 ML IV SCH (08:53)
[2021-06-26] MEDS: PANTOPRAZOLE 40 MG TAB PO SCH (08:54)
[2021-06-26] MEDS: PROMACTA 50 MG PO SCH (08:54)
[2021-06-26 09:00] VITALS: BP 111/68
[2021-06-26] MEDS: INSULIN LANTUS (GLARGINE) 1 /0.01ml (100units/ml) SC SCH ×2 (09:03→22:33)
[2021-06-26 13:00] VITALS: BP 108/53
[2021-06-26 18:00] VITALS: BP 104/60
[2021-06-26 22:00] VITALS: BP 114/57
[2021-06-27] MEDS: ACCU-CHEK COMFORT CURVE STRIP VI SCH ×6 (00:04→21:36)
[2021-06-27] MEDS: InsuLIN REG 1unit/0.01ml Soln (100units/ml) SC SCH ×6 (00:05→21:37)
[2021-06-27 05:00] VITALS: BP 128/74
[2021-06-27 05:05] LABS: Basophils # (auto) 0 10 ^3/uL (0-0.2); Eosinophils # (auto) 0 10 ^3/uL (0-0.8); Lymphocytes # (auto) 0.4 10 ^3/uL (0.4-5.4); White Blood Cell 2.9 10^3/uL (4.4-10.8)
[2021-06-27 05:07] LABS: Basophils % (auto) 1.1 % (0.0-2.0); Hematocrit 28.9 % (36.0-46.0); Lymphocytes % (auto) 13.3 % (10.0-50.0); Mean Corpuscular Hemoglobin 34.5 pg (28.0-32.0); Mean Corpuscular Hgb Conc. 34.6 g/dL (32.0-36.0); Mean Corpuscular Volume 99.9 fL (80.0-100.0); Monocytes # (auto) 0.2 10 ^3/uL (0-1.3); Monocytes % (auto) 6.7 % (0.0-12.0); Neutrophils # (auto) 2.3 10 ^3/uL (1.6-8.6); Neutrophils % (auto) 78.9 % (37.0-80.0); Nucleated Red Blood Cells % 0.5 %; Red Blood Cells 2.89 10^6/uL (4.0-5.20); Red Cell Distribution Width 14.9 % (11.8-14.3)
[2021-06-27] MEDS: methylPREDNISolone SOD SUCC 125 MG/2 ML VL IV SCH ×3 (05:55→21:36)
[2021-06-27 06:00] LABS: BUN/Creatinine Ratio 40.2; Calcium 7.5 mg/dL (8.5-10.1); Magnesium 2.5 mg/dL (1.6-2.6); Potassium 4.5 mmol/L (3.5-5.1)
[2021-06-27] MEDS: PROMACTA 50 MG PO SCH (09:04)
[2021-06-27] MEDS: levoFLOXacin 500MG 100 ML IV SCH (09:04)
[2021-06-27] MEDS: PANTOPRAZOLE 40 MG TAB PO SCH (09:05)
[2021-06-27] MEDS: INSULIN LANTUS (GLARGINE) 1 /0.01ml (100units/ml) SC SCH ×2 (09:06→21:37)
[2021-06-27 09:23] VITALS: BP 132/63
[2021-06-27 13:00] VITALS: BP 139/74
[2021-06-27 17:01] VITALS: BP 127/77
[2021-06-27 22:00] VITALS: BP 125/68
[2021-06-28] MEDS: ACCU-CHEK COMFORT CURVE STRIP VI SCH ×6 (00:25→21:58)
[2021-06-28] MEDS: InsuLIN REG 1unit/0.01ml Soln (100units/ml) SC SCH ×6 (00:25→22:00)
[2021-06-28 05:00] VITALS: BP 145/68
[2021-06-28] MEDS: methylPREDNISolone SOD SUCC 125 MG/2 ML VL IV SCH ×3 (05:15→21:58)
[2021-06-28 07:59] LABS: Eosinophils # (auto) 0 10 ^3/uL (0-0.8); Hemoglobin 10.6 g/dL (12.2-16.2); Lymphocytes # (auto) 0.5 10 ^3/uL (0.4-5.4); Monocytes # (auto) 0.1 10 ^3/uL (0-1.3); Neutrophils # (auto) 2.3 10 ^3/uL (1.6-8.6); White Blood Cell 2.9 10^3/uL (4.4-10.8)
[2021-06-28 08:01] LABS: Basophils # (auto) 0.1 10 ^3/uL (0-0.2); Basophils % (auto) 2.4 % (0.0-2.0); Eosinophils % (auto) 0.1 % (0.0-7.0); Hematocrit 30.1 % (36.0-46.0); Lymphocytes % (auto) 16.5 % (10.0-50.0); Nucleated Red Blood Cells % 0.6 %; Red Blood Cells 3.01 10^6/uL (4.0-5.20); Red Cell Distribution Width 14.8 % (11.8-14.3)
[2021-06-28 09:00] VITALS: BP 139/78
[2021-06-28] MEDS: INSULIN LANTUS (GLARGINE) 1 /0.01ml (100units/ml) SC SCH ×2 (09:24→22:00)
[2021-06-28] MEDS: levoFLOXacin 500MG 100 ML IV SCH (10:16)
[2021-06-28] MEDS: PROMACTA 50 MG PO SCH (10:16)
[2021-06-28] MEDS: PANTOPRAZOLE 40 MG TAB PO SCH (10:17)
[2021-06-28 13:00] VITALS: BP 116/76
[2021-06-28 17:00] VITALS: BP 146/76
[2021-06-28] MEDS: ACETAMINOPHEN 325 MG TAB PO PRN (21:58)
[2021-06-28 22:00] VITALS: BP 138/70
[2021-06-29] MEDS: ACCU-CHEK COMFORT CURVE STRIP VI SCH ×6 (00:32→20:00)
[2021-06-29] MEDS: InsuLIN REG 1unit/0.01ml Soln (100units/ml) SC SCH ×6 (00:40→20:00)
[2021-06-29] MEDS ORDERED: ACETAMINOPHEN 325 MG TAB PO PRN (04:30)
[2021-06-29 05:00] VITALS: BP 127/54
[2021-06-29] MEDS: methylPREDNISolone SOD SUCC 125 MG/2 ML VL IV SCH (06:18)
[2021-06-29 07:03] LABS: Basophils # (auto) 0 10 ^3/uL (0-0.2); Eosinophils # (auto) 0 10 ^3/uL (0-0.8); Hemoglobin 9.9 g/dL (12.2-16.2); Lymphocytes # (auto) 0.7 10 ^3/uL (0.4-5.4); Monocytes # (auto) 0.1 10 ^3/uL (0-1.3); Neutrophils # (auto) 1.8 10 ^3/uL (1.6-8.6); Nucleated Red Blood Cells % 0.5 %; White Blood Cell 2.7 10^3/uL (4.4-10.8)
[2021-06-29 07:06] LABS: Basophils % (auto) 1.8 % (0.0-2.0); Hematocrit 28.4 % (36.0-46.0); Lymphocytes % (auto) 25.6 % (10.0-50.0); Mean Corpuscular Hemoglobin 35.1 pg (28.0-32.0); Mean Corpuscular Volume 100.4 fL (80.0-100.0); Monocytes % (auto) 3.7 % (0.0-12.0); Neutrophils % (auto) 68.9 % (37.0-80.0); Red Blood Cells 2.83 10^6/uL (4.0-5.20); Red Cell Distribution Width 14.9 % (11.8-14.3)
[2021-06-29 09:00] VITALS: BP 146/71
[2021-06-29] MEDS: levoFLOXacin 500MG 100 ML IV SCH (09:09)
[2021-06-29] MEDS: PROMACTA 50 MG PO SCH (09:09)
[2021-06-29] MEDS: PANTOPRAZOLE 40 MG TAB PO SCH (09:10)
[2021-06-29] MEDS: INSULIN LANTUS (GLARGINE) 1 /0.01ml (100units/ml) SC SCH ×2 (09:11→22:30)
[2021-06-29 13:00] VITALS: BP 131/66
[2021-06-29] MEDS: predniSONE 20 MG TAB PO SCH ×2 (14:43→22:29)
[2021-06-29 17:00] VITALS: BP 109/58
[2021-06-29 22:03] VITALS: BP 93/43
[2021-06-30] MEDS: ACCU-CHEK COMFORT CURVE STRIP VI SCH ×6 (00:21→21:31)
[2021-06-30] MEDS: InsuLIN REG 1unit/0.01ml Soln (100units/ml) SC SCH ×6 (00:21→21:36)
[2021-06-30 05:30] VITALS: BP 127/71
[2021-06-30 05:32] LABS: Basophils # (auto) 0 10 ^3/uL (0-0.2); Eosinophils # (auto) 0 10 ^3/uL (0-0.8); Hemoglobin 9.9 g/dL (12.2-16.2); Lymphocytes # (auto) 0.5 10 ^3/uL (0.4-5.4); Monocytes # (auto) 0.3 10 ^3/uL (0-1.3); Neutrophils # (auto) 1.8 10 ^3/uL (1.6-8.6); Nucleated Red Blood Cells % 0.3 %; White Blood Cell 2.6 10^3/uL (4.4-10.8)
[2021-06-30 05:36] LABS: Basophils % (auto) 0.8 % (0.0-2.0); Eosinophils % (auto) 0.1 % (0.0-7.0); Hematocrit 27.8 % (36.0-46.0); Lymphocytes % (auto) 20.6 % (10.0-50.0); Mean Corpuscular Hgb Conc. 35.5 g/dL (32.0-36.0); Mean Corpuscular Volume 101.5 fL (80.0-100.0); Monocytes % (auto) 9.7 % (0.0-12.0); Neutrophils % (auto) 68.8 % (37.0-80.0); Red Blood Cells 2.74 10^6/uL (4.0-5.20); Red Cell Distribution Width 15.4 % (11.8-14.3)
[2021-06-30] MEDS: predniSONE 20 MG TAB PO SCH ×3 (05:44→21:34)
[2021-06-30 08:54] VITALS: BP 151/79
[2021-06-30] MEDS: levoFLOXacin 500MG 100 ML IV SCH (10:08)
[2021-06-30] MEDS: PANTOPRAZOLE 40 MG TAB PO SCH (10:08)
[2021-06-30] MEDS: PROMACTA 50 MG PO SCH (10:09)
[2021-06-30] MEDS: INSULIN LANTUS (GLARGINE) 1 /0.01ml (100units/ml) SC SCH ×2 (11:33→21:35)
[2021-06-30 13:00] VITALS: BP 120/60
[2021-06-30] MEDS: ACETAMINOPHEN 325 MG TAB PO SCH (15:48)
[2021-06-30] MEDS: diphenhdrAMINE HCL 50 MG/1 ML VL IV SCH (15:48)
[2021-06-30 16:36] VITALS: BP 136/74
[2021-06-30] MEDS: RITUXIMAB IV SCH (16:59)
[2021-06-30] MEDS: SODIUM CHL 0.9% IV SCH (16:59)
[2021-06-30 22:00] VITALS: BP 114/53
[2021-07-01] MEDS: ACCU-CHEK COMFORT CURVE STRIP VI SCH ×6 (00:51→20:21)
[2021-07-01] MEDS: InsuLIN REG 1unit/0.01ml Soln (100units/ml) SC SCH ×6 (00:52→20:24)
[2021-07-01 01:39] LABS: Urine Bacteria FEW /hpf (None Seen); Urine Blood Negative /uL (Negative); Urine Specific Gravity 1.013 (1.001-1.035); Urine WBC 4 /hpf (0 - 5)
[2021-07-01 05:00] VITALS: BP 132/71
[2021-07-01 05:32] LABS: Basophils # (auto) 0 10 ^3/uL (0-0.2); Eosinophils # (auto) 0 10 ^3/uL (0-0.8); Lymphocytes # (auto) 0.7 10 ^3/uL (0.4-5.4); Monocytes # (auto) 0.2 10 ^3/uL (0-1.3); Neutrophils # (auto) 1.4 10 ^3/uL (1.6-8.6); Nucleated Red Blood Cells % 0.5 %
[2021-07-01 05:33] LABS: Hematocrit 27.5 % (36.0-46.0); Mean Corpuscular Volume 101.3 fL (80.0-100.0)
[2021-07-01 05:35] LABS: Basophils % (auto) 1.3 % (0.0-2.0); Eosinophils % (auto) 0.1 % (0.0-7.0); Hemoglobin 9.5 g/dL (12.2-16.2); Lymphocytes % (auto) 27.7 % (10.0-50.0); Mean Corpuscular Hemoglobin 35.1 pg (28.0-32.0); Mean Corpuscular Hgb Conc. 34.7 g/dL (32.0-36.0); Monocytes % (auto) 9.6 % (0.0-12.0); Neutrophils % (auto) 61.3 % (37.0-80.0); Red Blood Cells 2.71 10^6/uL (4.0-5.20); Red Cell Distribution Width 15.3 % (11.8-14.3); White Blood Cell 2.4 10^3/uL (4.4-10.8)
[2021-07-01] MEDS: predniSONE 20 MG TAB PO SCH ×3 (05:59→22:28)
[2021-07-01] MEDS ORDERED: hydrALAZINE HCL 20 MG/ML VL IV PRN (08:30)
[2021-07-01 08:46] VITALS: BP 165/84
[2021-07-01] MEDS: levoFLOXacin 500MG 100 ML IV SCH (10:34)
[2021-07-01] MEDS: PROMACTA 50 MG PO SCH (10:35)
[2021-07-01] MEDS: PANTOPRAZOLE 40 MG TAB PO SCH (10:35)
[2021-07-01 11:10] LABS: BUN/Creatinine Ratio 42.2; Calcium 7.4 mg/dL (8.5-10.1); Potassium 4.5 mmol/L (3.5-5.1)
[2021-07-01] MEDS: INSULIN LANTUS (GLARGINE) 1 /0.01ml (100units/ml) SC SCH (11:41)
[2021-07-01 13:00] VITALS: BP 111/53
[2021-07-01 16:53] VITALS: BP 145/87
[2021-07-01 22:00] VITALS: BP 136/86
[2021-07-02] MEDS: INSULIN LANTUS (GLARGINE) 1 /0.01ml (100units/ml) SC SCH ×3 (00:25→22:55)
[2021-07-02] MEDS: ACCU-CHEK COMFORT CURVE STRIP VI SCH ×6 (01:17→22:03)
[2021-07-02] MEDS: InsuLIN REG 1unit/0.01ml Soln (100units/ml) SC SCH ×6 (01:19→22:00)
[2021-07-02 05:00] VITALS: BP 133/71
[2021-07-02] MEDS: predniSONE 20 MG TAB PO SCH ×3 (05:44→22:02)
[2021-07-02 06:06] LABS: Basophils # (auto) 0 10 ^3/uL (0-0.2); Eosinophils # (auto) 0 10 ^3/uL (0-0.8); Lymphocytes # (auto) 0.8 10 ^3/uL (0.4-5.4); Monocytes # (auto) 0.3 10 ^3/uL (0-1.3); Neutrophils # (auto) 1.3 10 ^3/uL (1.6-8.6); White Blood Cell 2.4 10^3/uL (4.4-10.8)
[2021-07-02 06:09] LABS: Basophils % (auto) 0.8 % (0.0-2.0); Eosinophils % (auto) 0.2 % (0.0-7.0); Hematocrit 27.3 % (36.0-46.0); Hemoglobin 9.6 g/dL (12.2-16.2); Mean Corpuscular Hemoglobin 35.6 pg (28.0-32.0); Mean Corpuscular Hgb Conc. 35.2 g/dL (32.0-36.0); Mean Corpuscular Volume 101.3 fL (80.0-100.0); Monocytes % (auto) 11.9 % (0.0-12.0); Neutrophils % (auto) 54.1 % (37.0-80.0); Nucleated Red Blood Cells % 0.4 %; Red Blood Cells 2.69 10^6/uL (4.0-5.20); Red Cell Distribution Width 15.5 % (11.8-14.3)
[2021-07-02 09:00] VITALS: BP 139/69
[2021-07-02] MEDS: levoFLOXacin 500MG 100 ML IV SCH (09:47)
[2021-07-02] MEDS: PANTOPRAZOLE 40 MG TAB PO SCH (09:47)
[2021-07-02] MEDS: PROMACTA 50 MG PO SCH (09:47)
[2021-07-02 13:00] VITALS: BP 125/68
[2021-07-02 17:00] VITALS: BP 139/75
[2021-07-02 22:00] VITALS: BP 118/70
[2021-07-03] MEDS ORDERED: INSULIN LANTUS (GLARGINE) 1 /0.01ml (100units/ml) SC SCH (10:00)
== END 2021-07-03 01:45 | disposition short-term general hospital (02) | DRG 661 ==
LOC: ER 15:42 → OVERFLOW 20:20 → DOU IN ICU 06-11 07:15 → TELE-CENTR 06-12 21:19
PROVIDERS: ADMIT Internal Medicine; ATTEND Internal Medicine
PROC: 30233R1 Transfusion of Nonautologous Platelets into Peripheral Vein, Percutaneous Approach (ICD-10-PCS; principal; 2021-06-10)
PROC: 3E033WL Introduction of Immunosuppressive into Peripheral Vein, Percutaneous (ICD-10-PCS; 2021-06-10)
DX: D69.3 Immune thrombocytopenic purpura (principal); N30.00 Acute cystitis without hematuria; D70.9 Neutropenia, unspecified; D64.9 Anemia, unspecified; E11.9 Type 2 diabetes mellitus without complications; B96.20 Unspecified Escherichia coli [E. coli] as the cause of diseases classified elsewhere; E78.00 Pure hypercholesterolemia, unspecified; I10 Essential (primary) hypertension; Z16.12 Extended spectrum beta lactamase (ESBL) resistance; Z20.822 Contact with and (suspected) exposure to COVID-19; D69.59 Other secondary thrombocytopenia; Z79.4 Long term (current) use of insulin; Z90.710 Acquired absence of both cervix and uterus; Z90.81 Acquired absence of spleen
CPT/HCPCS: 36415; 74177; 76700; 80048; 80053; 81001; 82607; 82728; 82746; 82962; 83540; 83550; 83605; 83615; 83735; 84484; 85007; 85025; 85027; 85045; 85610; 85652; 85730; 86141; 86850; 86880; 86900; 86901; 87040; 87045; 87081; 87086; 87088; 87186; 87426; 87427; 87493; 93005; 96365; 97163; G0378; J0696; J1561; J1815; J1956